=== PATIENT | female | born 1935 | race African-American/Black ===

== ENCOUNTER 2017-05-14 07:45 | Emergency (ER) | payer MEDICARE, OTHER ==
[~2017-05-14] VITALS: Ht 162.6 cm; Wt 40.8 kg
[~2017-05-14 07:45] MED LIST: CLOP75TA PO; FERR-26 PO; HYDR-2762 PO; LOSA50TA6 PO; SIMV40TA3 PO
--- NOTE | 2017-05-14 08:33 | PHYS DOC ---
Past Medical History Past Medical History: Asthma, Cancer, Hypertension Additional Past Medical Histor: HIGH CHOLESTEROL Past Surgical History: Other Additional Past Surgical Histo: RIGHT LEG BYPASS Alcohol Use: None Drug Use: None Adult General Chief Complaint Chief Complaint: BACK PAIN - NO INJURY HPI HPI Patient is a 82 year old F who presents with upper back pain and a cough. Patient states she's had a cough for the past couple days and woke up this morning with worsening shortness of breath. Patient states she came the emergency room because she started having back pain that started last night and got worse this morning. Patient denies any trauma. Patient states the back pain is remitted thoracic across the low back. Patient denies any fevers. Patient denies any chest pain. Patient is not currently short of breath in the emergency room. Patient has no other complaints. Review of Systems Review of Systems GEN: Denies fevers, chills, sweats HEENT: Denies blurred vision, sore throat CV: Denies chest pain RESP: cough GI: Denies n/v/d NEURO: Denies confusion, dizziness MSK: Back pain Current Medications Current Medications Current Medications Medications (Trade) Dose Ordered Sig/Marilu Start Time Stop Time Status Last Admin Dose Admin Fentanyl Citrate (Fentanyl 2ml Vial) 50 mcg 1X ONCE 05/14/17 10:30 05/14/17 10:31 DC 05/14/17 11:00 50 MCG Iohexol (Omnipaque 300 Mg/ml) 75 ml STK-MED ONCE 05/14/17 09:40 05/14/17 09:41 DC Allergies Allergies Allergies Coded Allergies Type Severity Reaction Last Updated Verified No Known Drug Allergies 10/25/13 No Physical Exam Physical Exam GEN.: No apparent distress. Alert and oriented. HEENT: Head is normocephalic, atraumatic NECK: Supple. LUNGS: Decreased breath sounds right lung base HEART: RRR, S1, S2 present. Peripheral pulses intact ABDOMEN: Soft, nontender. Positive bowel sounds. EXTREMITIES: Without any cyanosis. NEUROLOGIC: Normal speech, normal tone PSYCHIATRIC: Normal affect, normal mood. SKIN: No ulcerations BACK: No midline tenderness over the C/T/L-spine no tenderness palpation over the paraspinous muscles over the T and L-spine Current Patient Data Vital Signs Vital Signs Date Time Temp Pulse Resp B/P (MAP) Pulse Ox O2 Delivery O2 Flow Rate FiO2 05/14/17 08:19 97.8 81 18 136/76 (96) 96 Room Air 97.8 Lab Values Laboratory Tests Test 05/14/17 08:50 White Blood Count 5.5 x10^3/uL (4.0-11.0) Red Blood Count 4.07 x10^6/uL (3.50-5.40) Hemoglobin 11.5 g/dL (12.0-15.5) L Hematocrit 34.6 % (36.0-47.0) L Mean Corpuscular Volume 85 fL (79-100) Mean Corpuscular Hemoglobin 28 pg (25-35) Mean Corpuscular Hemoglobin Concent 33 g/dL (31-37) Red Cell Distribution Width 18.2 % (11.5-14.5) H Platelet Count 371 x10^3/uL (140-400) Neutrophils (%) (Auto) 78 % (31-73) H Lymphocytes (%) (Auto) 10 % (24-48) L Monocytes (%) (Auto) 9 % (0-9) Eosinophils (%) (Auto) 3 % (0-3) Basophils (%) (Auto) 1 % (0-3) Neutrophils # (Auto) 4.3 x10^3uL (1.8-7.7) Lymphocytes # (Auto) 0.6 x10^3/uL (1.0-4.8) L Monocytes # (Auto) 0.5 x10^3/uL (0.0-1.1) Eosinophils # (Auto) 0.1 x10^3/uL (0.0-0.7) Basophils # (Auto) 0.1 x10^3/uL (0.0-0.2) Sodium Level 129 mmol/L (136-145) L Potassium Level 3.6 mmol/L (3.5-5.1) Chloride Level 94 mmol/L (98-107) L Carbon Dioxide Level 24 mmol/L (21-32) Anion Gap 11 (6-14) Blood Urea Nitrogen 5 mg/dL (7-20) L Creatinine 0.7 mg/dL (0.6-1.0) Estimated GFR (Cockcroft-Gault) 97.4 BUN/Creatinine Ratio 7 (6-20) Glucose Level 113 mg/dL (70-99) H Calcium Level 9.1 mg/dL (8.5-10.1) Total Bilirubin 0.2 mg/dL (0.2-1.0) Aspartate Amino Transferase (AST) 24 U/L (15-37) Alanine Aminotransferase (ALT) 16 U/L (14-59) Alkaline Phosphatase 51 U/L (46-116) Troponin I Quantitative < 0.017 ng/mL (0.000-0.055) Total Protein 7.5 g/dL (6.4-8.2) Albumin 3.9 g/dL (3.4-5.0) Albumin/Globulin Ratio 1.1 (1.0-1.7) Laboratory Tests 05/14/17 08:50 Laboratory Tests 05/14/17 08:50 EKG EKG 0845: EKG shows normal sinus rhythm rate of 76 no STEMI[] Radiology/Procedures Radiology/Procedures CXR: NAD CT chest: IMPRESSION: No acute finding in the chest. Opacity in the left upper lobe the etiology of which is unclear. This may reflect a focus of scarring. Malignancy is not excluded. Follow-up imaging should be considered. Possible tiny nodule in the right lower lobe[] Course & Med Decision Making Course & Med Decision Making Pertinent Labs and Imaging studies reviewed. (See chart for details) ED course: Patient was seen and examined emergency room CBC, CMP, CT scan of the chest with contrast and x-ray and EKG were ordered 1100: Patient was reexamined still having back pain however it was not reproducible with palpation and she reported the back pain as mid to upper back and hurt worse when she coughed, made patient aware of CT findings and the questionable finding on the left lung and recommended follow-up with PCP to further evaluate for possible lung mass. 1132: On reexamination patient feels much better after receiving 50 g of fentanyl and she is ready to go home. MDM: After reviewing the chart, CC/HPI/PMH, physical exam, [lab results], [ radiological results], I do not believe the patient has a significant lung infection or traumatic spinal injury warranting further workup and/or admission at this time. I believe the patient's back pain is secondary to muscle strain from coughing. On reexamination the pain has gotten better the patient is ready go home. Patient is stable for discharge. Additional verbal discharge instructions were provided to the patient and that if symptoms get worse or any new symptoms arise that are worrisome to the patient she is to return to the emergency room immediately [] Demetriaon Disclaimer Dragon Disclaimer This electronic medical record was generated, in whole or in part, using a voice recognition dictation system. Departure Departure Impression: Primary Impression: Cough Additional Impression: Pain in thoracic spine Disposition: HOME, SELF-CARE Condition: IMPROVED Referrals: RONIT PARIKH MD (PCP) Patient Instructions: Back Pain, Adult, Cough, Adult Additional Instructions: Please follow up with your family doctor 1 to 2 days Scripts Ibuprofen (IBUPROFEN) 800 Mg Tablet 800 MG PO PRN Q8HRS Y for INFLAMMATION for 10 Days, #30 TAB Prov: YASEMIN MELGOZA DO 05/14/17 Problem Qualifiers YASEMIN MELGOZA DO May 14, 2017 08:33
--- NOTE | 2017-05-14 08:50 | EKG ---
[facility] [address] [place] [address] Test Date: 2017-05-14 Test Time: 08:42:04 Pat Name: ALEXANDRA HAYES Department: Room: Gender: F Toby Maker: : [id number] Requested By: YASEMIN MELGOZA Order Number: [id number] Reading MD: Karla Pascual Measurements Intervals [place] Rate: 76 P: 76 MT: 162 QRS: 64 QRSD: 70 T: 62 QT: 380 QTc: 432 Interpretive Statements SINUS RHYTHM LEFT ATRIAL ABNORMALITY Electronically Signed On 05-17-2017 9:34:50 CDT by Karla Pascual
[2017-05-14 09:12] LABS: BASO # 0.1 x10^3/uL (0.0-0.2); BASO % 1 % (0-3); EOS % 3 % (0-3); HEMATOCRIT 34.6 % (36.0-47.0); HEMOGLOBIN 11.5 g/dL (12.0-15.5); LYMPH # 0.6 x10^3/uL (1.0-4.8); LYMPH % 10 % (24-48); MEAN CORPUSCULAR HEMOGLOBIN 28 pg (25-35); MEAN CORPUSCULAR HGB CONC 33 g/dL (31-37); MEAN CORPUSCULAR VOLUME 85 fL (79-100); MONO % 9 % (0-9); NEUT % 78 % (31-73); PLATELET COUNT 371 x10^3/uL (140-400); RED BLOOD COUNT 4.07 x10^6/uL (3.50-5.40); RED CELL DISTRIBUTION WIDTH 18.2 % (11.5-14.5); WHITE BLOOD COUNT 5.5 x10^3/uL (4.0-11.0)
[2017-05-14 09:14] LABS: CALCIUM 9.1 mg/dL (8.5-10.1); CREATININE 0.7 mg/dL (0.6-1.0); GFR 97.4; POTASSIUM 3.6 mmol/L (3.5-5.1)
[2017-05-14 09:20] LABS: ALBUMIN 3.9 g/dL (3.4-5.0); ALBUMIN/GLOBULIN RATIO 1.1 (1.0-1.7); TOTAL BILIRUBIN 0.2 mg/dL (0.2-1.0); TOTAL PROTEIN 7.5 g/dL (6.4-8.2)
[2017-05-14] MEDS ORDERED: IOHEXOL 300 MG/ML 75 ML VIAL IV ONE (09:30)
[2017-05-14] MEDS ORDERED: IOHEXOL 300 MG/ML 75 ML VIAL ONE (09:40)
--- NOTE | 2017-05-14 09:47 | RAD ---
Indication difficulty breathing. A single view the chest was obtained and is compared to a study 07/09/2009. There are probable background changes of emphysema or fibrosis. An acute finding in the chest is not seen. Calcified right hilar lymph nodes are noted appearing similar. IMPRESSION: No acute finding seen in the chest
--- NOTE | 2017-05-14 09:59 | RAD ---
Indication upper back pain. Contrast imaging was performed through the chest. Images were obtained during the arterial phase. Images were reformatted in the coronal and sagittal planes. 75 cc of Omnipaque 300 was administered. Note is made of a previous examination 04/05/2010. Imaging through the upper abdomen is unremarkable. There is moderately extensive coronary artery calcification. Apart from calcification of the thoracic aorta the aorta appears unremarkable. There are calcified mediastinal and right hilar lymph nodes. An acute parenchymal infiltrate in either lung is not seen. There is no pleural fluid or pneumothorax. There is a slightly irregular nodular opacity in the left upper lobe, image 26 series 2, measuring approximately 7 mm in greatest dimension. It is new relative to the previous exam. While this may reflect scar malignancy is not excluded. There is a possible nodule or scar in the right lower lobe measuring approximately 5 mm, image 44. IMPRESSION: No acute finding in the chest. Opacity in the left upper lobe the etiology of which is unclear. This may reflect a focus of scarring. Malignancy is not excluded. Follow-up imaging should be considered. Possible tiny nodule in the right lower lobe Nodules detected incidentally at non-screening CT Nodule size (mm) less than or equal to 4 Low Risk patients- no follow-up needed High Risk patients- follow-up at 12 months and if no change, no further imaging needed. Nodule size > 4-6 mm Low risk patients- follow- up at 12 months and if no change, no further imaging needed High risk patients- initial follow-up CT at 6-12 months and then at 18-24 months if no change. Nodule Size > 6-8 mm Low risk patients- initial follow-up CT at 6-12 months and then at 18-24 months if no change. High risk patients- initial follow- up CT at 3-6 months and then at 9-12 months if no change, Nodule Size >8 mm Either low or high risk patients: Follow-up CT at around 3, 9 and 24 [address], PET, and/or biopsy Note: newly detected indeterminate nodule in person 35 years of age or older. Low risk patients- minimal or absent history of smoking and/or other known risk factors. High risk patients- history of smoking or of other known risk factors. PQRS Compliance Statement: One or more of the following individualized dose reduction techniques were utilized for this examination: 1. Automated exposure control 2. Adjustment of the mA and/or kV according to patient size 3. Use of iterative reconstruction technique
[2017-05-14] MEDS ORDERED: fentaNYL PF VIAL 100 MCG/2 ML VIAL IV ONE (10:30)
[2017-05-14] MEDS ORDERED: IBUP-1060 PO (11:39)
[2017-05-14 11:42] VITALS: BP 162/77
== END 2017-05-14 11:51 | disposition home or self-care (01) ==
LOC: ER 07:45
DX: R05 Cough (principal); M54.6 Pain in thoracic spine; J45.909 Unspecified asthma, uncomplicated; I10 Essential (primary) hypertension; E78.00 Pure hypercholesterolemia, unspecified
CPT/HCPCS: 36415; 71010; 71260; 80053; 84484; 85025; 93005; 96374; 99285; J3010; Q9967

== ENCOUNTER → 2017-11-28 | Outpatient (CLI) | payer MEDICARE | END | disposition home or self-care (01) | LOC: CT 13:11 | DX: J43.2 Centrilobular emphysema (principal); I25.10 Atherosclerotic heart disease of native coronary artery without angina pectoris; I70.0 Atherosclerosis of aorta; D71 Functional disorders of polymorphonuclear neutrophils | CPT/HCPCS: 71250 ==

== ENCOUNTER → 2018-12-11 | Outpatient (CLI) | payer MEDICARE ==
[~2018-12-11] MED LIST changes: -FERR-26 PO; +FERR325T14 PO; -HYDR-2762 PO; +HYDR-2765 PO; +IBUP-1060 PO; +LOSA-73 PO; -LOSA50TA6 PO
--- NOTE | 2018-12-11 16:32 | RAD ---
PQRS Compliance Statement: One or more of the following individualized dose reduction techniques were utilized for this examination: 1. Automated exposure control 2. Adjustment of the mA and/or kV according to patient size 3. Use of iterative reconstruction technique CT CHEST WO CONTRAST Clinical Indication: F/U LUNG NODULE Comparison: CT chest without contrast, November 28, 2017. TECHNIQUE: Helical CT imaging of the chest is performed without IV contrast. Findings: Atherosclerotic thoracic aorta. Question narrowing at the origin of the left subclavian artery. Stable large calcified right paratracheal and right hilar lymph nodes. Three-vessel coronary artery disease. Aortic annular calcification. The great vessels are normal caliber. Cardiac size normal, no pericardial effusion. Minimal linear retained secretions in the trachea. There is mild upper lobe centrilobular emphysema. Minimal linear scarring or discoid atelectasis in the right middle lobe. Irregular nodular opacities in the left upper lobe have increased in size largest solid component measures 0.7 x 0.9 cm, image 125 of series 3. Opacity partially outlines a bronchiole, image 128. There is focal peribronchial thickening is seen on image 131. Some of this change may be infectious/inflammatory. Underlying malignancy is not excluded. Tiny subpleural nodule in the superior segment of the left lower lobe is stable, image 203. Visualized upper abdomen is unremarkable. No loss of height in the thoracic spine. IMPRESSION: 1. Irregular nodular opacities in the left upper lobe have increased in size. Opacity partially outlines a bronchiole and there is focal peribronchial thickening. Some of the change may be infectious/inflammatory. Underlying malignancy is not excluded. Given the change, shorter-term CT follow-up is suggested. 2. Mild upper lobe centrilobular emphysema. Electronically signed by: Erick Cheung MD (12/11/2018 4:29 PM) [id number]
== END | disposition home or self-care (01) ==
LOC: CT 14:59
PROVIDERS: ATTEND Internal Medicine Pulmonary Disease
DX: J43.2 Centrilobular emphysema (principal); R91.1 Solitary pulmonary nodule; I70.0 Atherosclerosis of aorta; I77.1 Stricture of artery; I25.10 Atherosclerotic heart disease of native coronary artery without angina pectoris; I10 Essential (primary) hypertension; Z87.891 Personal history of nicotine dependence
CPT/HCPCS: 71250

== ENCOUNTER → 2019-06-08 | Outpatient (CLI) | payer MEDICARE ==
--- NOTE | 2019-06-08 15:20 | RAD ---
Examination: CT chest without contrast. HISTORY: History of lung nodule COMPARISON: 12/11/2018 TECHNIQUE: Axial CT images were performed without contrast. Coronal and sagittal reformats are performed. Exposure: One or more of the following individualized dose reduction techniques were utilized for this examination: 1. Automated exposure control 2. Adjustment of the mA and/or kV according to patient size 3. Use of iterative reconstruction technique FINDINGS: The central airways are patent. Mild cardiomegaly. Coronary artery calcifications/ The ascending aorta measures 3 cm in transverse dimension. Diffuse aortic atherosclerosis. Calcified lymph nodes identified in the mediastinum and the right hilum. Irregularity identified in the right upper lobe of the lung now measures 2.8 cm compared to prior exam measuring 9 mm. There is this small nodule identified in the right lower lobe of the lung measuring 7.5 mm similar to prior exam. No evidence of pleural effusion or pneumothorax Moderate lung emphysematous changes. The visualized noncontrasted liver, spleen, adrenals grossly appears unremarkable. Mild degenerative changes thoracic spine. IMPRESSION: 1. Interval increase in size of the irregular opacity left upper lobe lung suspicious for malignancy. Recommend CT guided biopsy and/or PET CT scan. Electronically signed by: Tomi Hinkle MD (06/08/2019 3:17 PM) [id number]
== END | disposition home or self-care (01) ==
LOC: CT 15:19
PROVIDERS: ATTEND Internal Medicine Pulmonary Disease
DX: J43.8 Other emphysema (principal); R91.1 Solitary pulmonary nodule; I70.0 Atherosclerosis of aorta
CPT/HCPCS: 71250

== ENCOUNTER → 2020-08-15 | Outpatient (CLI) | payer MEDICARE ==
[~2020-08-15] MED LIST changes: +SIMV40TA18 PO; -SIMV40TA3 PO
[2020-08-15 14:20] LABS: BASO # 0.1 x10^3/uL (0.0-0.2); BASO % 1 % (0-3); EOS # 0.6 x10^3/uL (0.0-0.7); EOS % 7 % (0-3); HEMATOCRIT 27.2 % (36.0-47.0); HEMOGLOBIN 9.1 g/dL (12.0-15.5); LYMPH # 0.8 x10^3/uL (1.0-4.8); LYMPH % 10 % (24-48); MEAN CORPUSCULAR HEMOGLOBIN 30 pg (25-35); MEAN CORPUSCULAR HGB CONC 33 g/dL (31-37); MEAN CORPUSCULAR VOLUME 89 fL (79-100); MONO # 0.7 x10^3/uL (0.0-1.1); MONO % 8 % (0-9); NEUT # 6.2 x10^3/uL (1.8-7.7); NEUT % 74 % (31-73); PLATELET COUNT 589 x10^3/uL (140-400); RED BLOOD COUNT 3.07 x10^6/uL (3.50-5.40); RED CELL DISTRIBUTION WIDTH 17.7 % (11.5-14.5); WHITE BLOOD COUNT 8.4 x10^3/uL (4.0-11.0)
== END ==
LOC: ONCLAB 13:46
PROVIDERS: ATTEND Internal Medicine Hematology & Oncology
DX: C50.412 Malignant neoplasm of upper-outer quadrant of left female breast (principal); D50.9 Iron deficiency anemia, unspecified
CPT/HCPCS: 36415; 82607; 82728; 82746; 83540; 83550; 85025

== ENCOUNTER → 2020-09-19 | Outpatient (CLI) | payer MEDICARE ==
--- NOTE | 2020-09-20 09:02 | RAD ---
ADDENDUM #[address] Muhammad by telephone at 10:37 AM on 09/20/2020. Electronically signed by: Danica Patino MD (09/20/2020 10:37 AM) [id number] ORIGINAL REPORT EXAM: CT Chest without IV contrast INDICATION: Reason: CHEST PAIN, LUNG MASS / Spl. Instructions: / History: TECHNIQUE: Multi-detector row CT images were acquired from the thoracic inlet through the upper abdo men without the use of IV contrast. Sagittal and coronal images were acquired from the transaxial jorge a. All CT scans performed at this facility utilize dose optimization techniques as appropriate to the exam, including the following: Automated exposure control and adjustment of the mA and/or KV accordi ng to patient size (this includes techniques or standardized protocols for targeted exams where dose is indication/reason for exam). COMPARISON: Noncontrast chest CT 06/08/2019 FINDINGS: The absence of IV contrast limits evaluation of soft tissue pathology. CARDIOVASCULAR: Dense atherosclerotic calcifications in the thoracic aorta and in the origin of the left subclavian artery. Ascending aorta is unchanged in caliber at 3.2 cm. The heart is upper normal size. Trace pericardial effusion. MEDIASTINUM & MARTA: Densely calcified mediastinal and right hilar lymph nodes redemonstrated. Trace p ericardial fluid. LUNGS: Further interval increase in spiculated left upper lobe lung nodule, now measuring 3.1 x 1.8 x 1.6 cm (images 24 of axial series 2 and image 17 of coronal series 5) compared with 2.9 x 1.3 x 1.3 cm prev iously (image 27 of series 2 and image 29 of series 5 on the prior study). There is now abutment agai nst the left upper lobe pulmonary artery. Previously reported 7.5 mm nodule in the right lower lobe is not as well seen on this examination but in the left lower lobe periphery (image 37 of series 3 this exam), a 4 mm nodule is unchanged. PLEURAL SPACE: There is a new small left pleural effusion. No pneumothorax. OSSEOUS & SOFT TISSUE: There is a new left chest wall mass centered on the left eighth rib near the diaphragm that measures 4.9 x 3.2 x 6.1 cm (coronal image 19 series 5, axial image 47 series 3). It is associated with permea tive osteolytic destruction of the left eighth rib and mild pleural thickening. Sagittal reformats sanchez ggest possible involvement of the superior margin of the adjacent left ninth rib as well (image 11 se shannon 6). There is a left level 1 axillary lymph node (image 38 of series 3) that appears slightly larger and a symmetric to the contralateral chest. This is at the approximate 3:00 position 5 cm from the nipple. ABDOMEN: The visualized portions of the upper abdomen are unremarkable. IMPRESSION: 1. Findings suspicious for progression in a primary lung malignancy in the left upper lobe with now e vidence of metastatic disease to the left chest wall and a small left pleural effusion. Findings telephoned to the ordering provider's office (Dr. Sergo Muhammad) and left with his diagnostic assistant via voicemail at 8:41 AM on 09/20/2020. Electronically signed by: Danica Patino MD (09/20/2020 9:00 AM) [id number]
== END ==
LOC: CT 11:36
PROVIDERS: ATTEND Family Medicine
DX: C78.02 Secondary malignant neoplasm of left lung (principal); I70.0 Atherosclerosis of aorta; I89.8 Other specified noninfective disorders of lymphatic vessels and lymph nodes; R91.8 Other nonspecific abnormal finding of lung field; J90 Pleural effusion, not elsewhere classified
CPT/HCPCS: 71250

== ENCOUNTER → 2020-09-29 | Outpatient (CLI) | payer MEDICARE ==
--- NOTE | 2020-10-02 13:03 | RAD ---
DATE: 09/29/2020 1:42 PM EXAM: DIGITAL SCREEN BILAT W/CAD HISTORY: Screening COMPARISON: None. This is a baseline. Bilateral CC and MLO views of the breasts were performed. Bilateral breast tomosynthesis was performed in CC and MLO projections. This study was interpreted with the benefit of Computerized Aided Detection (CAD). FINDINGS: Breast Density: SCATTERED The breast parenchyma shows scattered fibroglandular densities. Breast parenchyma level B No suspicious masses, microcalcifications or architectural distortion is present to suggest malignancy in either breast. The visualized axillae are unremarkable. IMPRESSION: No mammographic evidence of malignancy. BI-RADS CATEGORY: 1 NEGATIVE RECOMMENDED FOLLOW-UP: 12M 12 MONTH FOLLOW-UP Annual screening mammography is recommended, unless clinically indicated sooner based on symptoms or change in physical exam. PQRS compliance statement: Patient information was entered into a reminder system with a target due date for the next mammogram. Mammography is a sensitive method for finding small breast cancers, but it does not detect them all and is not a substitute for careful clinical examination. A negative mammogram does not negate a clinically suspicious finding and should not result in delay in biopsying a clinically suspicious abnormality. "Our facility is accredited by the [employer] Mammography Program."
== END ==
LOC: PETSC 13:23
PROVIDERS: ATTEND Radiology Radiation Oncology
DX: Z12.31 Encounter for screening mammogram for malignant neoplasm of breast (principal)
CPT/HCPCS: 77067

== ENCOUNTER 2020-10-04 09:50 | Outpatient (CLI) | payer MEDICARE ==
[2020-10-04] VITALS (10 sets, daily range): BP systolic 113–172; BP diastolic 54–89
[~2020-10-04] VITALS: Ht 162.6 cm; Wt 37.2 kg
[2020-10-04] MEDS ORDERED: fentaNYL PF VIAL 100 MCG/2 ML VIAL ONE (10:46)
[2020-10-04] MEDS ORDERED: MIDAZOLAM HCL/PF 2 MG/2 ML VIAL. ONE (10:46)
[2020-10-04 11:00] LABS: BASO # 0.1 x10^3/uL (0.0-0.2); BASO % 1 % (0-3); EOS # 0.7 x10^3/uL (0.0-0.7); EOS % 7 % (0-3); HEMATOCRIT 32.4 % (36.0-47.0); HEMOGLOBIN 10.6 g/dL (12.0-15.5); LYMPH # 0.3 x10^3/uL (1.0-4.8); LYMPH % 3 % (24-48); MEAN CORPUSCULAR HEMOGLOBIN 28 pg (25-35); MEAN CORPUSCULAR HGB CONC 33 g/dL (31-37); MEAN CORPUSCULAR VOLUME 86 fL (79-100); MONO # 0.5 x10^3/uL (0.0-1.1); MONO % 5 % (0-9); NEUT # 9.2 x10^3/uL (1.8-7.7); NEUT % 85 % (31-73); PLATELET COUNT 751 x10^3/uL (140-400); RED BLOOD COUNT 3.78 x10^6/uL (3.50-5.40); RED CELL DISTRIBUTION WIDTH 14.1 % (11.5-14.5); WHITE BLOOD COUNT 10.8 x10^3/uL (4.0-11.0)
[2020-10-04] MEDS ORDERED: fentaNYL PF VIAL 100 MCG/2 ML VIAL IV ONE (11:00)
[2020-10-04] MEDS ORDERED: LIDOCAINE WITH 8.4% SOD BICARB 3 ML DISP.SYRIN. IJ ONE (11:00)
[2020-10-04] MEDS ORDERED: MIDAZOLAM HCL/PF 2 MG/2 ML VIAL. IV ONE (11:00)
[2020-10-04] MEDS ORDERED: LIDOCAINE WITH 8.4% SOD BICARB 3 ML DISP.SYRIN. ONE (11:03)
[2020-10-04 11:10] LABS: PROTHROMBIN TIME PATIENT 12.9 SEC (11.7-14.0)
[2020-10-04] MEDS ORDERED: OLME40TA12 PO (11:14)
[2020-10-04] MEDS ORDERED: FLUT1DIS IH (11:14)
[2020-10-04] MEDS ORDERED: AMLO2.5T5 PO (11:14)
[2020-10-04] MEDS ORDERED: TRAM50TA PO (11:14)
[2020-10-04] MEDS ORDERED: IPRA3AMP29 NEB (11:15)
[2020-10-04 12:06] LABS: % BANDS 11 % (0-9); % BASOS 1 % (0-3); % EOS 4 % (0-5); % LYMPHS 7 % (24-48); % MONOS 4 % (0-10); % SEGS 73 % (35-66)
[2020-10-04 12:08] LABS: PLT ESTIMATE INCREASED (ADEQUATE)
[2020-10-04 12:10] LABS: TOXIC VACUOLATION SLIGHT
--- NOTE | 2020-10-04 13:10 | NUR ---
Patient taken to vehicle via wheelchair. Patient's daughter driving. No bleeding at site. VS stable. On RA. Instructions provided on sedation, incision care. Patient and daughter verbalized understanding. All belongings taken w/ patient at time of d/c. Patient will followup with ordering MD for results/treatment.
--- NOTE | 2020-10-06 10:06 | RAD ---
Procedure: CT-guided biopsy, left chest wall mass Clinical Indication: Left chest wall mass concerning for metastatic lung cancer Sedation: [id number] conscious sedation time 20 minutes. The patient was monitored by a qualified independent observer throughout the time of sedation. Please refer to the medical record for exact doses of medications utilized to achieve moderate sedation. Sterility: The procedure was performed in its entirety using appropriate elements of sterile technique. Consent: The procedure was explained in its entirety to the patient or the patients designated entry level account representative by a member of the treatment team, including a discussion of the risks, benefits and commonly accepted alternatives to the procedure, as well as the expected consequences of no therapy whatsoever. Discussion of the risks included, but was not limited to, those that are most frequent and those that are rare but possibly severe or life-threatening, as well as the possibility of unforeseen complications. A timeout procedure was performed. The patient was placed in the supine position. CT imaging was obtained demonstrating a mass infiltrating the left chest wall. Arise from an underlying rib the area was prepped and draped as described. 1% lidocaine was used for local anesthesia. A small dermatotomy was made. Under periodic CT surveillance, a 17-gauge needles advanced into the center of the lesion. Core biopsy samples were obtained placed in formalin. The needle was removed. Manual pressure was held. No immediate complications were identified. Sterile dressings were applied. IMPRESSION: CT-guided biopsy, left chest wall mass. PQRS Compliance Statement: One or more of the following individualized dose reduction techniques were utilized for this examination: 1. Automated exposure control 2. Adjustment of the mA and/or kV according to patient size 3. Use of iterative reconstruction technique
== END 2020-10-04 13:13 | disposition home or self-care (01) ==
LOC: INTRAD 09:50
PROVIDERS: ATTEND Radiology Radiation Oncology
DX: R22.2 Localized swelling, mass and lump, trunk (principal); C34.32 Malignant neoplasm of lower lobe, left bronchus or lung; E78.00 Pure hypercholesterolemia, unspecified; I10 Essential (primary) hypertension; J44.9 Chronic obstructive pulmonary disease, unspecified; Z98.51 Tubal ligation status; Z79.899 Other long term (current) drug therapy; Z98.890 Other specified postprocedural states; Z20.828 Contact with and (suspected) exposure to other viral communicable diseases
CPT/HCPCS: 20206; 36415; 77012; 85007; 85025; 85610; 87426; 88305; 88341; 88342; 99152; C9803; J2250; J3010; J3490; U0003

== ENCOUNTER → 2020-10-06 | Outpatient (CLI) | payer MEDICARE ==
[2020-10-04 13:00] VITALS: BP 113/58
[~2020-10-06] MED LIST changes: +AMLO2.5T5 PO; +FLUT1DIS IH; +IPRA3AMP29 NEB; +OLME40TA12 PO; +TRAM50TA PO
--- NOTE | 2020-10-09 15:51 | RAD ---
EXAM: NM PET/CT SKULL BASE TO MID THIGH EXAM DATE: 10/06/2020 INDICATION: Pulmonary nodule. RADIOPHARMACEUTICAL: 13.8 mCi of F-18 Fluorodeoxyglucose (FDG) I.V. via the left antecubital fossa. TECHNIQUE: Patient weight: 82 pounds. Following at least four-hour fasting, the patient's blood gluco se was 120 mg/dl. Approximately 1 hour and 30 minutes after administration of FDG, overlapping emiss ion scanning was performed from the orbital meatal line through the pelvis. A low-dose CT was perfor med for attenuation correction purposes and anatomic localization. Fused images of PET and CT were re viewed. Any standardized uptake values (SUV) reported are maximum values within a volume region of i nterest, expressed in gm/ml. COMPARISON: CT-guided left chest mass biopsy of 10/04/2020, noncontrast CT chest of 09/19/2020. FINDINGS: PET: In the head and neck, no abnormal FDG uptake is identified. In the chest, the spiculated left upper lobe lung mass with pleural retraction demonstrates abnormal FDG uptake to max SUV of 7.07. There is abnormal FDG uptake in the adjacent left hilum to a max SUV o f 9.04. There is also abnormal FDG uptake in the mediastinal lymph nodes including an AP window showi ng uptake to max SUV of 9.31, and enlarged left and right internal mammary nodes respectively showing a FDG uptake to max SUV of 4.23 and 5.06. By contrast, background mediastinal activity shows a max S UV of 2.17. In addition, a left chest wall mass eroding the eighth rib near the mid axillary line (and which was recently targeted for biopsy) shows abnormal FDG uptake to max SUV of 9.53 superiorly. The inferior a spect of the mass showing a max SUV of 7.85. There is a central photopenic defect in this mass that c ould reflect tissue necrosis. Focal FDG uptake near the left 8th rib costotransverse junction is also noted to a max SUV of 4.63. No abnormal FDG uptake in the abdomen or pelvis. CT: Head and neck shows a 1.7 cm isodense mass in the subcutaneous soft tissues of the right cheek, showi ng no abnormal FDG uptake, suggestive of a sebaceous cyst. There are dense arterial calcifications in the bilateral cervical carotid arteries. Chest shows densely calcified mediastinal and right hilar lymph nodes in addition to the hypermetabol ic nodes noted in the PET section of this study. For reference, the hypermetabolic left internal mamm renato lymph node measures 1.8 x 0.9 cm (image 114 of series 3) while the hypermetabolic right internal mammary lymph node measures 1.5 x 0.9 cm (image 124 of series 3). Heart is upper normal in size and t here is a trace, 6 mm maximum depth pericardial effusion. This is not significantly changed. Abdomen and pelvis show moderate stool throughout the large bowel, dense arterial calcifications incl uding in the abdominal aorta, and a stent in the right femoral artery. The bones show no acute or aggressive appearing lesions besides erosions at the left eighth rib as de scribed above. IMPRESSION: Findings consistent with a left upper lobe primary lung malignancy with extensive mediastinal and ips ilateral hilar adenopathy as described, associated with a small left pleural effusion and a hypermeta bolic left chest wall mass suspicious for a metastatic deposit. No findings of a synchronous malignan cy or more distant metastatic disease. Electronically signed by: Danica Patino MD (10/09/2020 3:49 PM) [id number]
== END ==
LOC: PETSC 09:21
PROVIDERS: ATTEND Radiology Radiation Oncology
DX: R91.8 Other nonspecific abnormal finding of lung field (principal); I31.3 Pericardial effusion (noninflammatory); R09.1 Pleurisy
CPT/HCPCS: 78815; A9552

== ENCOUNTER → 2020-10-12 | Outpatient (CLI) | payer MEDICARE ==
[2020-10-04 13:00] VITALS: BP 113/58
[~2020-10-12] MED LIST changes: +FERR-36 PO; +GADOTERATE 5 MMOL/10ML VIAL. IVP ONE; +HYDR-2759 PO; +PANT40TA77 PO
[2020-10-12 11:30] LABS: CREATININE 0.8 mg/dL (0.6-1.0); GFR 82.9
--- NOTE | 2020-10-12 13:53 | RAD ---
MRI BRAIN WO+W Date: 10/12/2020 11:10 AM Indication: CANCER STAGING Hx LUNG ADENOCARCINOMA Comparison: None. Technique: Multiplanar multisequence MRI of the brain was performed with and without intravenous cont rast using the standard protocol. 7 cc Clariscan contrast was administered intravenously during the e xam. Findings: No acute infarct. No acute hemorrhage. Focus of gradient susceptibility artifact in the left parietal region, likely chronic microhemorrhage or cavernoma. The ventricles are normal in size and configura tion without hydrocephalus. Mild scattered FLAIR hyperintensities in the subcortical and periventricu lar deep white matter, a nonspecific finding, most commonly seen with chronic small vessel ischemic d isease. Moderate generalized cerebral volume loss. No abnormal enhancement. The scalp and calvarium are normal. The pituitary and sella are normal. No Chiari malformation. Incom pletely characterized degenerative spondylosis of the visualized upper cervical spine. The visualized orbits and globes are normal. The visualized paranasal sinuses are clear. Right mastoi d fluid. Right facial subcutaneous nodule, likely sebaceous cyst. Normal flow voids within the vertebral, basilar, and internal carotid arteries indicating patency. IMPRESSION: 1. No evidence of intracranial metastatic disease. 2. Mild chronic small vessel ischemic disease and moderate generalized cerebral volume loss. Electronically signed by: Michael Zayas MD (10/12/2020 1:51 PM) [id number]
== END ==
LOC: MRI 13:29
PROVIDERS: ATTEND Radiology Radiation Oncology
DX: C34.82 Malignant neoplasm of overlapping sites of left bronchus and lung (principal)
CPT/HCPCS: 36415; 70553; 82565; 84520; A9575

== ENCOUNTER 2020-11-25 14:38 | Emergency (ER) | payer MEDICARE ==
[~2020-11-25] VITALS: Ht 160 cm; Wt 34.0 kg
[~2020-11-25 14:38] MED LIST changes: -FERR-36 PO; -GADOTERATE 5 MMOL/10ML VIAL. IVP ONE; -HYDR-2759 PO; -PANT40TA77 PO
[2020-11-25 16:05] LABS: BASO % 1 % (0-3); EOS # 0.2 x10^3/uL (0.0-0.7); EOS % 4 % (0-3); HEMATOCRIT 31.4 % (36.0-47.0); HEMOGLOBIN 10.2 g/dL (12.0-15.5); LYMPH # 0.1 x10^3/uL (1.0-4.8); LYMPH % 2 % (24-48); MEAN CORPUSCULAR HEMOGLOBIN 26 pg (25-35); MEAN CORPUSCULAR HGB CONC 32 g/dL (31-37); MEAN CORPUSCULAR VOLUME 80 fL (79-100); MONO # 0.5 x10^3/uL (0.0-1.1); MONO % 10 % (0-9); NEUT # 3.8 x10^3/uL (1.8-7.7); NEUT % 83 % (31-73); PLATELET COUNT 414 x10^3/uL (140-400); RED CELL DISTRIBUTION WIDTH 18.6 % (11.5-14.5); WHITE BLOOD COUNT 4.6 x10^3/uL (4.0-11.0)
[2020-11-25 16:21] LABS: CREATININE 0.7 mg/dL (0.6-1.0); GFR 96.7; POTASSIUM 4.2 mmol/L (3.5-5.1)
[2020-11-25 16:24] LABS: % BANDS 5 % (0-9); % EOS 4 % (0-5); % LYMPHS 2 % (24-48); % MONOS 9 % (0-10); % SEGS 80 % (35-66); PLT ESTIMATE INCREASED (ADEQUATE)
[2020-11-25 16:25] LABS: ANISOCYTOSIS SLIGHT; POIKILOCYTOSIS SLIGHT; SCHISTOCYTES FEW
[2020-11-25 16:28] LABS: ALBUMIN 3.3 g/dL (3.4-5.0); DIRECT BILIRUBIN 0.1 mg/dL (0.0-0.2); TOTAL BILIRUBIN 0.3 mg/dL (0.2-1.0); TOTAL PROTEIN 7.3 g/dL (6.4-8.2)
[2020-11-25 16:39] LABS: CREATINE KINASE 72 U/L (26-192)
[2020-11-25] MEDS ORDERED: IV NORMAL SALINE 1000ML BAG 1,000 ML IV ONE (16:45)
--- NOTE | 2020-11-25 16:52 | PHYS DOC ---
Past Medical History Past Medical History: Asthma, COPD, High Cholesterol, Hypertension Additional Past Medical Histor: HIGH CHOLESTEROL (KATHERYN DOUGLASS MD) Past Surgical History: Other Additional Past Surgical Histo: Venous surgery on R leg, RADIATION (KATHERYN DOUGLASS MD) Smoking Status: Former Smoker Alcohol Use: None Drug Use: None (KATHERYN DOUGLASS MD) Adult General Chief Complaint Chief Complaint: WEAKNESS/GENERALIZED HPI HPI Patient is a 85 year old female with a complicated past medical history which is include diagnosis of recent cancer currently undergoing chemo and radiation now presenting emergency department for thrive and weakness. Patient and family note that she has been having increasing difficulty eating with decreased appetite over the last 24 hours notes that she has been increasingly weak with generalized body and muscle weakness. Daughter also notes that she feels that for the last 24 hours the patient has been slightly more delirious and "out of it". No fevers, chills, nausea, vomiting, abdominal pain, chest pain or shortness of breath. No recent travel or sick contacts. (KATHERYN DOUGLASS MD) Review of Systems Review of Systems Constitutional: Denies fever or chills [] Eyes: Denies change in visual acuity, redness, or eye pain [] HENT: Denies nasal congestion or sore throat [] Respiratory: Denies cough or shortness of breath [] Cardiovascular: No additional information not addressed in HPI [] GI: Denies abdominal pain, nausea, vomiting, bloody stools or diarrhea [] : Denies dysuria or hematuria [] Musculoskeletal: Denies back pain or joint pain [] Integument: Denies rash or skin lesions [] Neurologic: Denies headache, focal weakness or sensory changes [] Endocrine: Denies polyuria or polydipsia [] All other systems were reviewed and found to be within normal limits, except as documented in this note. (KATHERYN DOUGLASS MD) Current Medications Current Medications Current Medications Medications (Trade) Dose Ordered Sig/Marilu Start Time Stop Time Status Last Admin Dose Admin Sodium Chloride 1,000 ml @ 1,000 mls/hr 1X ONCE 11/25/20 16:45 11/25/20 17:44 DC 11/25/20 16:43 1,000 MLS/HR (ANA DUNCAN DO) Allergies Allergies Allergies Coded Allergies Type Severity Reaction Last Updated Verified No Known Drug Allergies 2/17/14 No (ANA DUNCAN DO) Physical Exam Physical Exam Constitutional: Well developed, well nourished, no acute distress, non-toxic a ppearance. [] HENT: Normocephalic, atraumatic, bilateral external ears normal, oropharynx moist, no oral exudates, nose normal. [] Eyes: PERRLA, EOMI, conjunctiva normal, no discharge. [] Neck: Normal range of motion, no tenderness, supple, no stridor. [] Cardiovascular:Heart rate regular rhythm, no murmur [] Lungs & Thorax: Bilateral breath sounds clear to auscultation [] Abdomen: Bowel sounds normal, soft, no tenderness, no masses, no pulsatile masses. [] Skin: Warm, dry, no erythema, no rash. [] Back: No tenderness, no CVA tenderness. [] Extremities: No tenderness, no cyanosis, no clubbing, ROM intact, no edema. [] Neurologic: Alert and oriented X 3, normal motor function, normal sensory function, no focal deficits noted. [] Psychologic: Affect normal, judgement normal, mood normal. [] (KATHERYN DOUGLASS MD) Current Patient Data Vital Signs Vital Signs Date Time Temp Pulse Resp B/P (MAP) Pulse Ox O2 Delivery O2 Flow Rate FiO2 11/25/20 17:05 88 18 131/63 (85) 95 Room Air 11/25/20 14:40 97.3 97.3 ([facility]) Lab Values Laboratory Tests Test 11/25/20 15:40 11/25/20 18:30 White Blood Count 4.6 x10^3/uL (4.0-11.0) Red Blood Count 3.90 x10^6/uL (3.50-5.40) Hemoglobin 10.2 g/dL (12.0-15.5) L Hematocrit 31.4 % (36.0-47.0) L Mean Corpuscular Volume 80 fL (79-100) Mean Corpuscular Hemoglobin 26 pg (25-35) Mean Corpuscular Hemoglobin Concent 32 g/dL (31-37) Red Cell Distribution Width 18.6 % (11.5-14.5) H Platelet Count 414 x10^3/uL (140-400) H Neutrophils (%) (Auto) 83 % (31-73) H Lymphocytes (%) (Auto) 2 % (24-48) L Monocytes (%) (Auto) 10 % (0-9) H Eosinophils (%) (Auto) 4 % (0-3) H Basophils (%) (Auto) 1 % (0-3) Neutrophils # (Auto) 3.8 x10^3/uL (1.8-7.7) Lymphocytes # (Auto) 0.1 x10^3/uL (1.0-4.8) L Monocytes # (Auto) 0.5 x10^3/uL (0.0-1.1) Eosinophils # (Auto) 0.2 x10^3/uL (0.0-0.7) Basophils # (Auto) 0.0 x10^3/uL (0.0-0.2) Segmented Neutrophils % 80 % (35-66) H Band Neutrophils % 5 % (0-9) Lymphocytes % 2 % (24-48) L Monocytes % 9 % (0-10) Eosinophils % 4 % (0-5) Platelet Estimate Increased (ADEQUATE) Poikilocytosis Slight Anisocytosis Slight Schistocytes Few Sodium Level 131 mmol/L (136-145) L Potassium Level 4.2 mmol/L (3.5-5.1) Chloride Level 96 mmol/L (98-107) L Carbon Dioxide Level 26 mmol/L (21-32) Anion Gap 9 (6-14) Blood Urea Nitrogen 18 mg/dL (7-20) Creatinine 0.7 mg/dL (0.6-1.0) Estimated GFR (Cockcroft-Gault) 96.7 Glucose Level 95 mg/dL (70-99) Calcium Level 9.0 mg/dL (8.5-10.1) Total Bilirubin 0.3 mg/dL (0.2-1.0) Direct Bilirubin 0.1 mg/dL (0.0-0.2) Aspartate Amino Transferase (AST) 18 U/L (15-37) Alanine Aminotransferase (ALT) 21 U/L (14-59) Alkaline Phosphatase 60 U/L (46-116) Creatine Kinase 72 U/L (26-192) Creatine Kinase MB (Mass) 1.6 ng/mL (0.0-3.6) Creatine Kinase MB Relative Index % (0-4) Total Protein 7.3 g/dL (6.4-8.2) Albumin 3.3 g/dL (3.4-5.0) L Lipase 94 U/L (73-393) Urine Collection Type Unknown Urine Color Yellow Urine Clarity Clear Urine pH 6.0 (<5.0-8.0) Urine Specific [place] 1.015 (1.000-1.030) Urine Protein Negative mg/dL (NEG-TRACE) Urine Glucose (UA) Negative mg/dL (NEG) Urine Ketones (Stick) Negative mg/dL (NEG) Urine Blood Negative (NEG) Urine Nitrite Negative (NEG) Urine Bilirubin Negative (NEG) Urine Urobilinogen Dipstick 0.2 mg/dL (0.2 mg/dL) Urine Leukocyte Esterase Negative (NEG) Urine RBC Occ /HPF (0-2) Urine WBC Occ /HPF (0-4) Urine Squamous Epithelial Cells Mod /LPF Urine Bacteria 0 /HPF (0-FEW) Urine Mucus Slight /LPF Laboratory Tests 11/25/20 15:40 Laboratory Tests 11/25/20 15:40 [facility] E[facility] EKG [] (KATHERYN DOUGLASS MD) Radiology/Procedures Radiology/Procedures [] (KATHERYN DOUGLASS MD) Course & Med Decision Making Course & Med Decision Making Pertinent Labs and Imaging studies reviewed. (See chart for details) 85F with worsening dizziness and weakness most consistent with acute failure to thrive but also probably secondary to chemotherapy. Primary complaint appears to be decreased appetite but there is some concern for weakness. Therefore we will obtain full continued on labs and make sure there is no significant underlying etiology or changes given the patient's age is also significant consideration for possible urinary tract infection causing the patient's symptoms. Obtain a urinalysis and reevaluate (KATHERYN DOUGLASS MD) Course & Med Decision Making 85-year-old female recently diagnosed with stage IV lung cancer, receiving radiation with Dr. Merritt. Has appt this week with Dr. Durbin to discuss test results/tx/palliative tx options this week. Has not seen primary care physician Dr. Robb since initial diagnosis. Reports difficulties eating has no appetite-is trying to drink four ensures a day. Labs with chronic stable normocytic anemia, mild hyponatremia, no ketonuria on labs, no UTI. Patient came to the ED with her daughter whom she has lived with for the past couple weeks to "get checked out, make sure everything is okay." Informed lab results and urinalysis are not showing any acute abnormality. Patient with no ataxia or neurologic deficits. Suspect failure to thrive and normal sxs related to terminal cancer and radiation tx. Will discharge home with strict ED return precautions were given for syncope, head injury, chest pain, difficulties breathing or dehydration. Encouraged urgent outpatient follow-up with PMD to discuss titration services, consider palliative versus hospice care. Life- threatening processes were considered but are low suspicion at this time, given history, physical exam and ED workup. Pt was educated on all prescription medications and adverse effects. All patient's questions were answered and pt was stable at time of discharge. Life/limb-threatening differential includes but is not limited to, cerebrovascular accident, cerebellar stroke, acute coronary syndrome, carbon monoxide poisoning or other toxidrome, syncope differential including cardiac arrhythmia/PE/aortic aneurysm or dissection/ACS, Guillan [place] syndrome, thyroid disease, infection, central and peripheral vertigo, intracranial hemorrhage, vertebrobasilar insufficiency, heat stroke, electrolyte disorder, rheumatologic or autoimmune disorder I spoken with the patient and her caregivers. I explained the patient's condition, diagnoses and treatment plan based on the information available to me at this time. I have answered the patient and her caregiver's questions and addressed any concerns. The patient and her caregivers have a good understanding of patient's diagnosis, condition and treatment plan as can be expected at this point. Vital signs have been stable. Patient's condition is stable and appropriate for discharge from the emergency department. Patient will pursue further outpatient evaluation with primary care physician or other designated or consulting physician as outlined in the discharge instr uctions. The patient and/or caregivers are agreeable to this plan of care and follow-up instructions have been explained in detail. The patient and/or caregivers have received these instructions in written form and have expressed an understanding of the discharge instructions. The patient and/or caregivers are aware that any significant change of condition or worsening of symptoms should prompt immediate return to this or the closest emergency department or call to 911. (ANA REVELES DO) Dragon Disclaimer Dragon Disclaimer This electronic medical record was generated, in whole or in part, using a voice recognition dictation system. (KATHERYN DOUGLASS MD) Departure Departure Impression: Primary Impression: Failure to thrive Additional Impressions: Normocytic anemia Hyponatremia Disposition: DC HOME SELF CARE/HOMELESS Condition: STABLE Referrals: CHAYO IVEY MD (PCP) within 1 week for re-evaluation and discuss school psychometrist services Patient Instructions: Cancer, Radiation Treatment Additional Instructions: EMERGENCY DEPARTMENT GENERAL DISCHARGE INSTRUCTIONS Thank you for coming to [facility] Emergency Department (ED) today and trusting us with you care. We trust that you had a positive experience in our Emergency Department. If you wish to speak to the department management, you may call the Director at [phone]. YOUR FOLLOW UP INSTRUCTIONS ARE FOLLOWS: 1. Do you have a private Doctor? If you do not have a private doctor, please ask for a resource list of physicians or clinics that may be able to assist you with follow up care. 2. The Emergency Physicain has interpreted your x-rays. The X-Ray specialist will also review them. If there is a change in the findings, you will be notified in 48 hours when at all possible. 3. A lab test or culture has been done, your results will be reviewed and you will be notified if you need a change in treatment. ADDITIONAL INSTRUCTIONS AND INFORMATION: 1. Your care today has been supervised by a physician who is specially trained in emergency care. Many problems require more than one evaluation for a complete diagnosis and treatment. We recommend that you schedule your follow up appointment as recommended to ensure complete treatment of you illness or injury. If you are unable to obtain follow up care and continue to have a problem, or if your condition worsens, we recommend that you return to the ED. 2. We are not able to safely determine your condition over the phone nor are we able to give sound medical advice over the phone. For these safety reasons, if you call for medical advice we will ask you to come to the ED for further evaluation. 3. If you have any questions regarding these discharge instructions please call the ED at [phone]. SAFETY INFORMATION: In the interest of safety, wellness, and injury prevention; we encourage you to wear your sealbelt, if you smoke; quite smoking, and we encourage family to use a protective helmet for bicycling and other sporting events that present an increased risk for head injury. IF YOUR SYMPTOMS WORSEN OR NEW SYMPTOMS DEVELOP, OR YOU HAVE CONCERNS ABOUT YOUR CONDITION; OR IF YOUR CONDITION WORSENS WHILE YOU ARE WAITING FOR YOUR FOLLOW UP APPOINTMENT; EITHER CONTACT YOUR PRIMARY CARE DOCTOR, THE PHYSICIAN WHOSE NAME AND NUMBER YOU WERE GIVEN, OR RETURN TO THE ED IMMEDIATELY. Problem Qualifiers KATHERYN DOUGLASS MD Nov 25, 2020 16:51 ANA DUNCAN DO Nov 25, 2020 19:24
--- NOTE | 2020-11-25 18:15 | EKG ---
[facility] [address] [place] [address] Test Date: 2020-11-25 Test Time: 15:55:06 Pat Name: ALEXANDRA HAYES Department: Room: Gender: F Roll Coverer: : 1935 Requested By: KATHERYN DOUGLASS Order Number: [id number] Reading MD: Measurements Intervals [place] Rate: 82 P: 90 NV: 148 QRS: 51 QRSD: 76 T: 58 QT: 350 QTc: 412 Interpretive Statements SINUS RHYTHM ATRIAL PREMATURE COMPLEX(ES) OTHERWISE NORMAL ECG RI6.02 No previous ECG available for comparison
[2020-11-25 18:36] LABS: BILIRUBIN,URINE NEGATIVE (NEG); CLARITY,URINE CLEAR; COLOR,URINE YELLOW; NITRITE,URINE NEGATIVE (NEG); PROTEIN,URINE NEGATIVE (NEG-TRACE); UROBILINOGEN,URINE 0.2 mg/dL (0.2 mg/dL)
[2020-11-25 18:45] LABS: BACTERIA,URINE 0 /HPF (0-FEW); RBC,URINE OCC /HPF (0-2); WBC,URINE OCC /HPF (0-4)
[2020-11-25 19:30] VITALS: BP 140/70
== END 2020-11-25 19:36 | disposition home or self-care (01) ==
LOC: ER 14:38
DX: R62.7 Adult failure to thrive (principal); Z68.1 Body mass index [BMI] 19.9 or less, adult; D64.9 Anemia, unspecified; E87.1 Hypo-osmolality and hyponatremia; J44.9 Chronic obstructive pulmonary disease, unspecified; E78.00 Pure hypercholesterolemia, unspecified; I10 Essential (primary) hypertension; Z87.891 Personal history of nicotine dependence
CPT/HCPCS: 36415; 80048; 80076; 81001; 82550; 82553; 83690; 85007; 85025; 93005; 96360; 96361; 99285; J7030

== ENCOUNTER → 2020-11-29 | Outpatient (CLI) | payer MEDICARE ==
[2020-11-25 19:30] VITALS: BP 140/70
[2020-11-29 12:54] LABS: BASO % 1 % (0-3); EOS # 0.2 x10^3/uL (0.0-0.7); EOS % 4 % (0-3); HEMATOCRIT 33.6 % (36.0-47.0); LYMPH # 0.1 x10^3/uL (1.0-4.8); LYMPH % 3 % (24-48); MEAN CORPUSCULAR HEMOGLOBIN 27 pg (25-35); MEAN CORPUSCULAR HGB CONC 33 g/dL (31-37); MEAN CORPUSCULAR VOLUME 81 fL (79-100); MONO # 0.6 x10^3/uL (0.0-1.1); MONO % 11 % (0-9); NEUT # 4.4 x10^3/uL (1.8-7.7); NEUT % 83 % (31-73); PLATELET COUNT 451 x10^3/uL (140-400); RED BLOOD COUNT 4.14 x10^6/uL (3.50-5.40); RED CELL DISTRIBUTION WIDTH 19.4 % (11.5-14.5); WHITE BLOOD COUNT 5.3 x10^3/uL (4.0-11.0)
[2020-11-29 13:08] LABS: CALCIUM 9.4 mg/dL (8.5-10.1); CREATININE 0.7 mg/dL (0.6-1.0); GFR 96.7; POTASSIUM 4.4 mmol/L (3.5-5.1)
[2020-11-29 13:26] LABS: ALBUMIN 3.5 g/dL (3.4-5.0); ALBUMIN/GLOBULIN RATIO 0.8 (1.0-1.7); TOTAL BILIRUBIN 0.2 mg/dL (0.2-1.0); TOTAL PROTEIN 7.7 g/dL (6.4-8.2)
== END ==
LOC: ONCLAB 12:31
PROVIDERS: ATTEND Internal Medicine Hematology & Oncology
DX: C34.82 Malignant neoplasm of overlapping sites of left bronchus and lung (principal); D50.9 Iron deficiency anemia, unspecified
CPT/HCPCS: 36415; 80053; 82728; 83540; 83550; 85025

== ENCOUNTER → 2020-12-18 | Outpatient (CLI) | payer MEDICARE ==
[2020-11-25 19:30] VITALS: BP 140/70
[2020-12-18 12:43] LABS: BASO # 0.1 x10^3/uL (0.0-0.2); BASO % 1 % (0-3); EOS # 0.1 x10^3/uL (0.0-0.7); EOS % 3 % (0-3); HEMATOCRIT 31.5 % (36.0-47.0); HEMOGLOBIN 10.4 g/dL (12.0-15.5); LYMPH # 0.2 x10^3/uL (1.0-4.8); LYMPH % 4 % (24-48); MEAN CORPUSCULAR HEMOGLOBIN 28 pg (25-35); MEAN CORPUSCULAR HGB CONC 33 g/dL (31-37); MEAN CORPUSCULAR VOLUME 84 fL (79-100); MONO # 0.4 x10^3/uL (0.0-1.1); MONO % 11 % (0-9); NEUT # 3.5 x10^3/uL (1.8-7.7); NEUT % 81 % (31-73); PLATELET COUNT 495 x10^3/uL (140-400); RED BLOOD COUNT 3.76 x10^6/uL (3.50-5.40); RED CELL DISTRIBUTION WIDTH 22.8 % (11.5-14.5); WHITE BLOOD COUNT 4.3 x10^3/uL (4.0-11.0)
[2020-12-18 12:47] LABS: CALCIUM 9.5 mg/dL (8.5-10.1); CREATININE 0.9 mg/dL (0.6-1.0); GFR 72.4; POTASSIUM 4.4 mmol/L (3.5-5.1)
[2020-12-18 12:52] LABS: ALBUMIN 3.8 g/dL (3.4-5.0); ALBUMIN/GLOBULIN RATIO 0.9 (1.0-1.7); TOTAL BILIRUBIN 0.2 mg/dL (0.2-1.0)
[2020-12-18 15:47] LABS: % BANDS 5 % (0-9); % EOS 3 % (0-5); % LYMPHS 5 % (24-48); % MONOS 9 % (0-10); % SEGS 78 % (35-66)
[2020-12-18 15:48] LABS: ANISOCYTOSIS MOD; OVALOCYTES FEW; PLT ESTIMATE INCREASED (ADEQUATE)
[2020-12-18 15:49] LABS: HYPOCHROMIA SLIGHT; SCHISTOCYTES OCC
== END ==
LOC: ONCLAB 12:21
PROVIDERS: ATTEND Internal Medicine Hematology & Oncology
DX: D50.9 Iron deficiency anemia, unspecified (principal)
CPT/HCPCS: 36415; 80053; 85007; 85025

== ENCOUNTER → 2020-12-28 | Outpatient (CLI) | payer MEDICARE ==
[~2020-12-28] MED LIST changes: +FERR-36 PO; +HYDR-2759 PO; +PANT40TA77 PO
== END ==
LOC: LAB 13:57
PROVIDERS: ATTEND Surgery
DX: Z01.812 Encounter for preprocedural laboratory examination (principal); Z20.822 Contact with and (suspected) exposure to COVID-19
CPT/HCPCS: U0003; U0005

== ENCOUNTER 2021-01-01 10:19 | Day surgery (SDC) | payer MEDICARE ==
[~2021-01-01] VITALS: Ht 162.6 cm; Wt 36.5 kg
[~2021-01-01 10:19] MED LIST changes: +HEPARIN SODIUM 5,000 UNIT in IV NORMAL SALINE 500ML BAG 500 ML IRR ONE; +HYDROmorphone 2 MG/ML VIAL IVP PRN; +IV RINGERS,LACTATED 1000ML 1,000 ML IV SCH; +MORPHINE SULFATE 2 MG/ML VIAL. IVP PRN; +PROCHLORPERAZINE 10 MG/2 ML VIAL. IVP PRN; +ceFAZolin SODIUM IV Push 1 GM VIAL. IVP PRN; +fentaNYL PF VIAL 100 MCG/2 ML VIAL IVP PRN
[2021-01-01] MEDS ORDERED: SEVOFLURANE 61 TO 120 MINUTES. IH ONE (12:17)
[2021-01-01] MEDS ORDERED: fentaNYL PF VIAL 100 MCG/2 ML VIAL ONE (12:17)
[2021-01-01] MEDS ORDERED: LIDOCAINE 2% PF 5 ML VIAL. ONE (12:17)
[2021-01-01] MEDS ORDERED: PROPOFOL 10 MG/ML (20ML) VIAL. IV ONE (12:17)
[2021-01-01] MEDS ORDERED: DEXAMETHASONE SOD PHOS 4 MG/ML VIAL ONE (12:18)
[2021-01-01] MEDS ORDERED: ONDANSETRON PF 4 MG/2 ML VIAL. ONE (12:18)
[2021-01-01] MEDS ORDERED: BUPIVACAINE-EPI 0.5%-1:200000 MPF 30 ML VIAL. ONE (13:10)
[2021-01-01] MEDS ORDERED: PHENYLEPHRINE in 0.9% NACL PF 1 MG/10 ML SYRINGE. IV ONE (14:03)
--- NOTE | 2021-01-01 14:48 | PDOC4 ---
Operative Note Operative Note Operative Note: Preoperative Diagnosis: Lung cancer Postoperative Diagnosis: Same Procedure: Placement of Power Port-A-Cath using SonoSite guidance Surgeon: [employer] Director: Caroline BONILLA Anesthesia: Gen. EBL: 10 mL Specimen: None Drains: None Complications: None Indication: The patient is a 85 year old female who was diagnosed with lung cancer. A request was made for placement of a Port-A-Cath to allow for chemotherapy treatment. The details and risks of the procedure were discussed. The risks include bleeding, infection, vessel injury, pneumothorax, pain, anesthetic risk, port, catheter or tubing malfunction or dysfunction, potential need for additional surgery or procedure. The patient understands and would like to proceed. Description: The patient was placed supine on the operating table and general anesthesia was performed. The bilateral neck and chest were prepped with ChloraPrep and draped in a standard surgical manner. With SonoSite ultrasound guidance the right internal jugular vein was readily identified and appeared patent. Entry was made into the vein with the skinny introducer needle under ultrasound guidance. The skinny guidewire passed readily into the central venous system. A small incision was made at the skin exit site. The skinny sheath was then placed over the guidewire. The larger guidewire was then placed within the sheath into the central venous system. Intraoperative fluoroscopy confirmed good position of the guidewire in the central venous system. The dilator and sheath were then placed over the guidewire. The catheter portion was then inserted into the central venous system and visualized using fluoroscopy. A separate right upper chest skin incision was made with a scalpel. A subcutaneous pocket was developed with cautery of sufficient size to accommodate the port. The catheter was then tunneled subcutaneously to the level of the newly formed pocket. Using fluoroscopy the catheter was positioned with the tip in the distal superior vena cava. The catheter was then cut and assembled to the port. The port was then secured to the chest wall with two 2-0 Prolene sutures. Using the Laughlin needle the port readily aspirated and flushed without difficulty. Fluoroscopy confirmed good positioning of the catheter with no twists or kinks. The subcutaneous tissue was approximated with 3-0 Vicryl. The skin was then closed with 4-0 Monocryl. A sterile OpSite dressing was then applied. The patient tolerated the procedure well and was sent to the recovery room in stable condition. At the end of the case all counts were correct. LUNA STEELE MD Jan 01, 2021 14:48
--- NOTE | 2021-01-01 14:50 | DISCH ---
DISCHARGE INSTRUCTIONS Condition on Discharge Condition on Discharge: Stable Activity After Discharge Activity Instructions for Disc: Activity as tolerated Diet after Discharge Diet after Discharge: Regular Wound Incision Care Wound/Incision Care: Other, see below (keep dressing clean and dry) Follow-Up Follow up with: Oncology per appointment LUNA STEELE MD Jan 01, 2021 14:50
[2021-01-01 15:37] VITALS: BP 111/57
--- NOTE | 2021-01-01 16:02 | RAD ---
EXAM: Chest, single view. HISTORY: Catheter placement. COMPARISON: PET/CT dated 10/06/2020. FINDINGS: A frontal view of the chest is obtained. There is a right internal jugular port catheter wi th the tip in the superior vena cava. There is no pneumothorax. There is a spiculated left upper lobe mass, similar compared to the recent PET CT with allowing for differences in imaging modality. There is a stable small left pleural effusion. There is emphysema. There is biapical pleural parenchymal s carring. The heart is normal in size. There are calcified granulomas. IMPRESSION: 1. Right port catheter with the tip in the superior vena cava. 2. Spiculated left upper lobe mass better characterized on the prior PET/CT. 3. Stable small left pleural effusion. 4. Emphysema. Electronically signed by: Ayse Garber MD (01/01/2021 4:00 PM) [id number]
== END 2021-01-01 16:10 | disposition home or self-care (01) ==
LOC: SURG 10:19
PROVIDERS: ATTEND Surgery
DX: C34.90 Malignant neoplasm of unspecified part of unspecified bronchus or lung (principal); I10 Essential (primary) hypertension; J44.9 Chronic obstructive pulmonary disease, unspecified; E78.5 Hyperlipidemia, unspecified; K21.9 Gastro-esophageal reflux disease without esophagitis; F17.210 Nicotine dependence, cigarettes, uncomplicated; Z79.899 Other long term (current) drug therapy; Z98.51 Tubal ligation status; Z98.890 Other specified postprocedural states
CPT/HCPCS: 36561; 71045; 76937; 77001; A4364; A4930; A6254; A6258; C1788; J0690; J1100; J1644; J2370; J2405; J2704; J3010; J7040; 76000; A4452; A4657

== ENCOUNTER 2021-01-03 12:22 | Observation (INO) | payer MEDICARE ==
[~2021-01-03] VITALS: Ht 160 cm; Wt 36.2 kg
[~2021-01-03 12:22] MED LIST changes: -HEPARIN SODIUM 5,000 UNIT in IV NORMAL SALINE 500ML BAG 500 ML IRR ONE; -HYDROmorphone 2 MG/ML VIAL IVP PRN; -IV RINGERS,LACTATED 1000ML 1,000 ML IV SCH; -MORPHINE SULFATE 2 MG/ML VIAL. IVP PRN; -PROCHLORPERAZINE 10 MG/2 ML VIAL. IVP PRN; -ceFAZolin SODIUM IV Push 1 GM VIAL. IVP PRN; -fentaNYL PF VIAL 100 MCG/2 ML VIAL IVP PRN
--- NOTE | 2021-01-03 12:50 | ED.ADGEN ---
Past Medical History Past Medical History: Asthma, COPD, High Cholesterol, Hypertension Additional Past Medical Histor: HIGH CHOLESTEROL Past Surgical History: Other Additional Past Surgical Histo: Venous surgery on R leg, RADIATION Smoking Status: Former Smoker Alcohol Use: None Drug Use: None General Adult EDM: Chief Complaint: ABDOMINAL PAIN HPI: HPI: Patient is a 85-year-old female who arrives via wheelchair to the emergency department after experiencing a syncopal episode in preparation for receiving a chemotherapeutic treatment. Patient has a history of lung cancer for which she receives chemotherapy. Patient was having her port accessed and blood drawn when she experienced a syncopal episode. In the process the patient lost control of her bowels. Patient is unaware of how long she was unconscious however she denies any associated pain with this incident. Additionally she denies any shortness of air. She further denies any history of previous illness prior to this syncopal episode. She is now awake, alert and nontoxic-appearing. Review of Systems: Review of Systems: Constitutional: Denies fever or chills. [] Eyes: Denies change in visual acuity. [] HENT: Denies nasal congestion or sore throat. [] Respiratory: Denies cough or shortness of breath. [] Cardiovascular: Reports to syncopal episode. Denies chest pain or edema. [] GI: Denies abdominal pain, nausea, vomiting, bloody stools or diarrhea. [] : Denies dysuria. [] Musculoskeletal: Denies back pain or joint pain. [] Integument: Denies rash. [] Neurologic: Denies headache, focal weakness or sensory changes. [] Endocrine: Denies polyuria or polydipsia. [] Lymphatic: Denies swollen glands. [] Psychiatric: Denies depression or anxiety. [] Current Medications: Current Medications Medications (Trade) Dose Ordered Sig/Marilu Start Time Stop Time Status Last Admin Dose Admin Ondansetron HCl (Zofran) 4 mg PRN Q8HRS PRN 01/03/21 14:45 01/04/21 14:44 Sodium Chloride 1,000 ml @ 1,000 mls/hr 1X ONCE 01/03/21 15:00 01/03/21 15:59 Allergies: Allergies: Allergies Coded Allergies Type Severity Reaction Last Updated Verified No Known Drug Allergies 01/01/21 No Physical Exam: PE: Constitutional: Well developed, well nourished, no acute distress, non-toxic appearance. [] HENT: Normocephalic, atraumatic, bilateral external ears normal, oropharynx moist, no oral exudates, nose normal. [] Eyes: PERRLA, EOMI, conjunctiva normal, no discharge. [] Neck: Normal range of motion, no tenderness, supple, no stridor. [] Cardiovascular:Heart rate regular rhythm, no murmur [] Lungs & Thorax: Bilateral breath sounds clear to auscultation [] Abdomen: Bowel sounds normal, soft, no tenderness, no masses, no pulsatile m asses. [] Skin: Warm, dry, no erythema, no rash. [] Back: No tenderness, no CVA tenderness. [] Extremities: No tenderness, no cyanosis, no clubbing, ROM intact, no edema. [] Neurologic: Alert and oriented X 3, normal motor function, normal sensory function, no focal deficits noted. [] Psychologic: Affect normal, judgement normal, mood normal. [] Current Patient Data: Labs: Laboratory Tests Test 01/03/21 14:27 White Blood Count 8.2 x10^3/uL (4.0-11.0) Red Blood Count 3.34 x10^6/uL (3.50-5.40) L Hemoglobin 9.4 g/dL (12.0-15.5) L Hematocrit 28.2 % (36.0-47.0) L Mean Corpuscular Volume 85 fL (79-100) Mean Corpuscular Hemoglobin 28 pg (25-35) Mean Corpuscular Hemoglobin Concent 33 g/dL (31-37) Red Cell Distribution Width 22.6 % (11.5-14.5) H Platelet Count 358 x10^3/uL (140-400) Neutrophils (%) (Auto) 85 % (31-73) H Lymphocytes (%) (Auto) 5 % (24-48) L Monocytes (%) (Auto) 8 % (0-9) Eosinophils (%) (Auto) 1 % (0-3) Basophils (%) (Auto) 1 % (0-3) Neutrophils # (Auto) 7.0 x10^3/uL (1.8-7.7) Lymphocytes # (Auto) 0.4 x10^3/uL (1.0-4.8) L Monocytes # (Auto) 0.7 x10^3/uL (0.0-1.1) Eosinophils # (Auto) 0.1 x10^3/uL (0.0-0.7) Basophils # (Auto) 0.0 x10^3/uL (0.0-0.2) Platelet Estimate Pending Sodium Level 135 mmol/L (136-145) L Potassium Level 4.5 mmol/L (3.5-5.1) Chloride Level 101 mmol/L (98-107) Carbon Dioxide Level 25 mmol/L (21-32) Anion Gap 9 (6-14) Blood Urea Nitrogen 22 mg/dL (7-20) H Creatinine 0.8 mg/dL (0.6-1.0) Estimated GFR (Cockcroft-Gault) 82.9 BUN/Creatinine Ratio 28 (6-20) H Glucose Level 90 mg/dL (70-99) Calcium Level 8.9 mg/dL (8.5-10.1) Total Bilirubin 0.2 mg/dL (0.2-1.0) Aspartate Amino Transferase (AST) 21 U/L (15-37) Alanine Aminotransferase (ALT) 19 U/L (14-59) Alkaline Phosphatase 55 U/L (46-116) Troponin I Quantitative < 0.017 ng/mL (0.000-0.055) Total Protein 7.1 g/dL (6.4-8.2) Albumin 3.8 g/dL (3.4-5.0) Albumin/Globulin Ratio 1.2 (1.0-1.7) Laboratory Tests 01/03/21 14:27 Laboratory Tests 01/03/21 14:27 Vital Signs: Vital Signs Date Time Temp Pulse Resp B/P (MAP) Pulse Ox O2 Delivery O2 Flow Rate FiO2 01/03/21 13:48 97.7 75 16 114/52 (72) 100 Room Air 97.7 EKG: EKG: EKG was obtained and reveals a normal sinus rhythm with a ventricular rate of 72 bpm. There are premature atrial complexes present. Intervals are otherwise normal and there are no acute ST/T wave changes to denote ischemia. [] Heart Score: C/O Chest Pain: No HEART Score for Chest Pain: HEART Score for Chest Pain Response (Comments) Value History Slighlty/Non-Suspicious 0 ECG Normal 0 Age > 65 2 Risk Factors 1 or 2 Risk Factors 1 Troponin < Normal Limit 0 Total 3 Risk Factors: Risk Factors: DM, Current or recent (<one month) smoker, HTN, HLP, family history of CAD, obesity. Risk Scores: Score 0 - 3: 2.5% MACE over next 6 weeks - Discharge Home Score 4 - 6: 20.3% MACE over next 6 weeks - Admit for Clinical Observation Score 7 - 10: 72.7% MACE over next 6 weeks - Early Invasive Strategies Radiology/Procedures: Radiology/Procedures: [] Impression: [facility] [address] [place] [address] IMAGING REPORT Signed PATIENT: ALEXANDRA HAYES EACCOUNT: [id number] : 1935 LOCATION: ER AGE: 85 SEX: F EXAM STATUS: REG ER ORD. PHYSICIAN: GILMA CRUZ DO REASON: Syncope PROCEDURE: PORTABLE CHEST 1V EXAM: CHEST 1 VIEW History: Syncope COMPARISON: 01/01/2021 TECHNIQUE: Single portable radiograph of the chest FINDINGS: The cardiac silhouette is unremarkable. Right-sided Port-A-Cath is unchanged. Irregular mass left upper lobe of the lung unchanged. Bilateral lung emphysematous changes. Trace left pleural effusion. Destructive changes of left posterior lateral eighth rib again identified. IMPRESSION: Findings as above. Electronically signed by: Tomi Hinkle MD (01/03/2021 1:30 PM) [id number] DICTATED and SIGNED BY: TOMI HINKLE MD DATE: 01/03/21 [id number] 0 Course & Med Decision Making: Course & Med Decision Making Pertinent Labs and Imaging studies reviewed. (See chart for details) [] Dragon Disclaimer: Dragon Disclaimer: This electronic medical record was generated, in whole or in part, using a voice recognition dictation system. Departure Departure Impression: Primary Impression: Syncope Additional Impressions: History of lung cancer Prerenal azotemia Disposition: ADMITTED INPATIENT Admitting Physician: FARZAD Condition: STABLE Referrals: CHAYO IVEY MD (PCP) Problem Qualifiers GILMA CRUZ DO Jan 03, 2021 12:50
--- NOTE | 2021-01-03 13:32 | RAD ---
EXAM: CHEST 1 VIEW History: Syncope COMPARISON: 01/01/2021 TECHNIQUE: Single portable radiograph of the chest FINDINGS: The cardiac silhouette is unremarkable. Right-sided Port-A-Cath is unchanged. Irregular ma ss left upper lobe of the lung unchanged. Bilateral lung emphysematous changes. Trace left pleural ef fusion. Destructive changes of left posterior lateral eighth rib again identified. IMPRESSION: Findings as above. Electronically signed by: Tomi Hinkle MD (01/03/2021 1:30 PM) [id number]
--- NOTE | 2021-01-03 13:48 | EKG ---
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
[2021-01-03 14:34] LABS: BASO % 1 % (0-3); EOS # 0.1 x10^3/uL (0.0-0.7); EOS % 1 % (0-3); HEMATOCRIT 28.2 % (36.0-47.0); HEMOGLOBIN 9.4 g/dL (12.0-15.5); LYMPH # 0.4 x10^3/uL (1.0-4.8); LYMPH % 5 % (24-48); MEAN CORPUSCULAR HEMOGLOBIN 28 pg (25-35); MEAN CORPUSCULAR HGB CONC 33 g/dL (31-37); MEAN CORPUSCULAR VOLUME 85 fL (79-100); MONO # 0.7 x10^3/uL (0.0-1.1); MONO % 8 % (0-9); NEUT % 85 % (31-73); PLATELET COUNT 358 x10^3/uL (140-400); RED BLOOD COUNT 3.34 x10^6/uL (3.50-5.40); RED CELL DISTRIBUTION WIDTH 22.6 % (11.5-14.5); WHITE BLOOD COUNT 8.2 x10^3/uL (4.0-11.0)
[2021-01-03 14:43] LABS: CALCIUM 8.9 mg/dL (8.5-10.1); CREATININE 0.8 mg/dL (0.6-1.0); GFR 82.9; POTASSIUM 4.5 mmol/L (3.5-5.1)
[2021-01-03] MEDS ORDERED: ONDANSETRON PF 4 MG/2 ML VIAL. IV PRN (14:45)
[2021-01-03 14:47] LABS: ALBUMIN 3.8 g/dL (3.4-5.0); ALBUMIN/GLOBULIN RATIO 1.2 (1.0-1.7); TOTAL BILIRUBIN 0.2 mg/dL (0.2-1.0); TOTAL PROTEIN 7.1 g/dL (6.4-8.2)
[2021-01-03] MEDS ORDERED: IV NORMAL SALINE 1000ML BAG 1,000 ML IV ONE (15:00)
[2021-01-03 15:13] LABS: % BANDS 9 % (0-9); % EOS 1 % (0-5); % LYMPHS 6 % (24-48); % MONOS 3 % (0-10); % SEGS 81 % (35-66); ANISOCYTOSIS MOD; PLT ESTIMATE ADEQUATE (ADEQUATE); POIKILOCYTOSIS SLIGHT
[2021-01-03] MEDS ORDERED: HYDROcodone/APAP 5/325MG 1 TAB TABLET PO ONE (15:45)
--- NOTE | 2021-01-03 17:29 | NUR ---
PT ARRIVED TO UNIT VIA GURNEY. TELEMETRY APPLIED. VSS. BED IN LOW POSITION AND LOCKED, CALL LIGHT IN REACH.
[2021-01-03 17:30] VITALS: BP 143/63
--- NOTE | 2021-01-03 18:27 | PDOC1 ---
History and Physical Date of Admission Date of Admission DATE: 01/03/21 TIME: 18:21 Source Source: Chart review, Patient History of Present Illness History of Present Illness Ms. Cervantes, is a 85-year-old female admit s/p syncopal episode at the infusion center today. She was there for starting chemo for her lung cancer. Patient was having her port accessed and blood drawn when she experienced a syncopal episode. she stooled herself but had no post-ictal state or prodrome . Patient is unaware of how long she was unconscious however she denies any associated pain with this incident. she felt well before and after, but the episode happened when she was lookign at her site. she reports she is always anxious Past Medical History Cardiovascular: HTN GI: GERD Heme/Onc: No pertinent hx Hepatobiliary: No pertinent hx Psych: Anxiety Social History Smoke: No ALCOHOL: none Drugs: None Current Problem List Problem List Problems Medical Problems: (1) History of lung cancer Status: Acute (2) Prerenal azotemia Status: Acute (3) Syncope Status: Acute Current Medications Current Medications Current Medications Ondansetron HCl (Zofran) 4 mg PRN Q8HRS PRN IV NAUSEA/VOMITING; Start 01/03/21 at 14:45; Stop 01/04/21 at 14:44 Sodium Chloride 1,000 ml @ 1,000 mls/hr 1X ONCE IV Last administered on 01/03/21at 15:50; Start 01/03/21 at 15:00; Stop 01/03/21 at 15:59; Status DC Acetaminophen/ Hydrocodone Bitart (Lortab 5/325) 1 tab 1X ONCE PO Last administered on 01/03/21at 15:51; Start 01/03/21 at 15:45; Stop 01/03/21 at 15:46; Status DC Active Scripts Active Reported Iron (Ferrous Sulfate) 325 Mg Tablet 1 Tab PO DAILY 30 Days Hydrocodone-Acetamin 5-325 mg (Hydrocodone/Acetaminophen) 1 Each Tablet 1 Each PO PRN Q6-8HRS Pantoprazole Sodium (Pantoprazole Sodium) 40 Mg Tablet.dr 40 Mg PO DAILYAC Duoneb 0.5-3(2.5) Mg/3 Ml (Albuterol/Ipratropium) 3 Ml Ampul.neb 3 Ml NEB PRN QID PRN Benicar (Olmesartan Medoxomil) 40 Mg Tablet 1 Tab PO DAILY 30 Days Amlodipine Besylate 2.5 Mg Tablet 2.5 Mg PO DAILY Advair 100-50 Diskus (Fluticasone/Salmeterol) 1 Each Disk.w.dev 2 Puff IH BID Clopidogrel (Clopidogrel Bisulfate) 75 Mg Tablet 75 Mg PO Allergies Allergies: Coded Allergies: No Known Drug Allergies (Unverified , 01/01/21) ROS General: No: Chills, Night Sweats, Fatigue, Malaise, Appetite, Other PSYCHOLOGICAL ROS: YES: Anxiety; No: Behavioral Disorder, Concentration difficultie, Decreased libido, Depression, Disorientation, Hallucinations, Hostility, Irritablity, Memory difficulties, Mood Swings, Obsessive thoughts, Physical abuse, Sexual abuse, Sleep disturbances, Suicidal ideation, Other Eyes: No Blurry vision, No Decreased vision, No Double vision, No Dry eyes, No Excessive tearing, No Eye Pain, No Itchy Eyes, No Loss of vision, No Photophobia, No Scotomata, No Uses contacts, No Uses glasses, No Other HEENT: No: Heacaches, Visual Changes, Hearing change, Nasal congestion, Nasal discharge, Oral lesions, Sinus pain, Sore Throat, Epistaxis, Sneezing, Snoring, Tinnitus, Vertigo, Vocal changes, Other Respiratory: No: Cough, Hemoptysis, Orthopnea, Pleuritic Pain, Shortness of breath, SOB with excertion, Sputum Changes, Stridor, Tachypnea, Wheezing, Other Cardiovascular: No Chest Pain, No Palpitations, No Orthopnea, No Paroxysmal Noc. Dyspnea, No Edema, No Lt Headedness, No Other Gastrointestinal: Yes Nausea Genitourinary: No Dysuria, No Frequency, No Incontinence, No Hematuria, No Retention, No Discharge, No Urgency, No Pain, No Flank Pain, No Other, No , No , No , No , No , No , No Musculoskeletal: No Gait Disturbance, No Joint Pain, No Joint Stiffness, No Joint Swelling, No Muscle Pain, No Muscular Weakness, No Pain In:, No Swelling In:, No Other Neurological: No Behavorial Changes, No Bowel/Bladder ControlChng, No Confusion, No Dizziness, No Gait Disturbance, No Headaches, No Impaired Coord/balance, No Memory Loss, No Numbness/Tingling, No Seizures, No Speech Problems, No Tremors, No Visual Changes, No Weakness, No Other Skin: No Dry Skin, No Eczema, No Hair Changes, No Lumps, No Mole Changes, No Mottling, No Nail Changes, No Pruritus, No Rash, No Skin Lesion Changes, No Other, No Acne Physical Exam General: Alert, Cooperative, No acute distress HEENT: Atraumatic, PERRLA, Mucous membr. moist/pink Heart: S1S2, no gallops, no murmurs Extremities: No clubbing, No edema, Normal pulses Skin: No breakdown, No significant lesion Neuro: Normal gait, Normal speech, Normal tone, Sensation intact Psych/Mental Status: Mental status NL, Mood NL Vitals Vitals Vital Signs Date Time Temp Pulse Resp B/P (MAP) Pulse Ox O2 Delivery O2 Flow Rate FiO2 01/03/21 17:00 68 18 126/57 (80) 93 Room Air 01/03/21 13:48 97.7 97.7 Labs Labs Laboratory Tests Test 01/03/21 14:27 White Blood Count 8.2 x10^3/uL (4.0-11.0) Red Blood Count 3.34 x10^6/uL (3.50-5.40) Hemoglobin 9.4 g/dL (12.0-15.5) Hematocrit 28.2 % (36.0-47.0) Mean Corpuscular Volume 85 fL (79-100) Mean Corpuscular Hemoglobin 28 pg (25-35) Mean Corpuscular Hemoglobin Concent 33 g/dL (31-37) Red Cell Distribution Width 22.6 % (11.5-14.5) Platelet Count 358 x10^3/uL (140-400) Neutrophils (%) (Auto) 85 % (31-73) Lymphocytes (%) (Auto) 5 % (24-48) Monocytes (%) (Auto) 8 % (0-9) Eosinophils (%) (Auto) 1 % (0-3) Basophils (%) (Auto) 1 % (0-3) Neutrophils # (Auto) 7.0 x10^3/uL (1.8-7.7) Lymphocytes # (Auto) 0.4 x10^3/uL (1.0-4.8) Monocytes # (Auto) 0.7 x10^3/uL (0.0-1.1) Eosinophils # (Auto) 0.1 x10^3/uL (0.0-0.7) Basophils # (Auto) 0.0 x10^3/uL (0.0-0.2) Segmented Neutrophils % 81 % (35-66) Band Neutrophils % 9 % (0-9) Lymphocytes % 6 % (24-48) Monocytes % 3 % (0-10) Eosinophils % 1 % (0-5) Platelet Estimate Adequate (ADEQUATE) Poikilocytosis Slight Anisocytosis Mod Sodium Level 135 mmol/L (136-145) Potassium Level 4.5 mmol/L (3.5-5.1) Chloride Level 101 mmol/L (98-107) Carbon Dioxide Level 25 mmol/L (21-32) Anion Gap 9 (6-14) Blood Urea Nitrogen 22 mg/dL (7-20) Creatinine 0.8 mg/dL (0.6-1.0) Estimated GFR (Cockcroft-Gault) 82.9 BUN/Creatinine Ratio 28 (6-20) Glucose Level 90 mg/dL (70-99) Calcium Level 8.9 mg/dL (8.5-10.1) Total Bilirubin 0.2 mg/dL (0.2-1.0) Aspartate Amino Transf (AST/SGOT) 21 U/L (15-37) Alanine Aminotransferase (ALT/SGPT) 19 U/L (14-59) Alkaline Phosphatase 55 U/L (46-116) Troponin I Quantitative < 0.017 ng/mL (0.000-0.055) Total Protein 7.1 g/dL (6.4-8.2) Albumin 3.8 g/dL (3.4-5.0) Albumin/Globulin Ratio 1.2 (1.0-1.7) Laboratory Tests Test 01/03/21 14:27 White Blood Count 8.2 x10^3/uL (4.0-11.0) Red Blood Count 3.34 x10^6/uL (3.50-5.40) Hemoglobin 9.4 g/dL (12.0-15.5) Hematocrit 28.2 % (36.0-47.0) Mean Corpuscular Volume 85 fL (79-100) Mean Corpuscular Hemoglobin 28 pg (25-35) Mean Corpuscular Hemoglobin Concent 33 g/dL (31-37) Red Cell Distribution Width 22.6 % (11.5-14.5) Platelet Count 358 x10^3/uL (140-400) Neutrophils (%) (Auto) 85 % (31-73) Lymphocytes (%) (Auto) 5 % (24-48) Monocytes (%) (Auto) 8 % (0-9) Eosinophils (%) (Auto) 1 % (0-3) Basophils (%) (Auto) 1 % (0-3) Neutrophils # (Auto) 7.0 x10^3/uL (1.8-7.7) Lymphocytes # (Auto) 0.4 x10^3/uL (1.0-4.8) Monocytes # (Auto) 0.7 x10^3/uL (0.0-1.1) Eosinophils # (Auto) 0.1 x10^3/uL (0.0-0.7) Basophils # (Auto) 0.0 x10^3/uL (0.0-0.2) Segmented Neutrophils % 81 % (35-66) Band Neutrophils % 9 % (0-9) Lymphocytes % 6 % (24-48) Monocytes % 3 % (0-10) Eosinophils % 1 % (0-5) Platelet Estimate Adequate (ADEQUATE) Poikilocytosis Slight Anisocytosis Mod Sodium Level 135 mmol/L (136-145) Potassium Level 4.5 mmol/L (3.5-5.1) Chloride Level 101 mmol/L (98-107) Carbon Dioxide Level 25 mmol/L (21-32) Anion Gap 9 (6-14) Blood Urea Nitrogen 22 mg/dL (7-20) Creatinine 0.8 mg/dL (0.6-1.0) Estimated GFR (Cockcroft-Gault) 82.9 BUN/Creatinine Ratio 28 (6-20) Glucose Level 90 mg/dL (70-99) Calcium Level 8.9 mg/dL (8.5-10.1) Total Bilirubin 0.2 mg/dL (0.2-1.0) Aspartate Amino Transf (AST/SGOT) 21 U/L (15-37) Alanine Aminotransferase (ALT/SGPT) 19 U/L (14-59) Alkaline Phosphatase 55 U/L (46-116) Troponin I Quantitative < 0.017 ng/mL (0.000-0.055) Total Protein 7.1 g/dL (6.4-8.2) Albumin 3.8 g/dL (3.4-5.0) Albumin/Globulin Ratio 1.2 (1.0-1.7) VTE Prophylaxis Ordered VTE Prophylaxis Devices: Yes VTE Pharmacological Prophylaxi: No Assessment/Plan Assessment/Plan syncope, admit obs to R/o [facility] lung cancer, new diagnosis underweight, BMI 13.9 , malnutrition GERD COPD, stable anemia, chronic disease, on iron supplement Justifications for Admission Other Justification JESSICA FRY MD Jan 03, 2021 18:26
[2021-01-03] MEDS ORDERED: ALBUTEROL SULFATE 2.5 MG/3 ML NEBU. NEB PRN (18:45)
--- NOTE | 2021-01-03 19:00 | NUR ---
SHERRY COLÓN APPLIED TO BLE.
[2021-01-03 19:29] VITALS: BP 128/70
[2021-01-03] MEDS: HYDROcodone/APAP 5/325MG 1 TAB TABLET PO PRN (21:09)
[2021-01-03 22:41] VITALS: BP 120/50
[2021-01-04 03:34] VITALS: BP 116/57
[2021-01-04] MEDS: HYDROcodone/APAP 5/325MG 1 TAB TABLET PO PRN ×3 (05:01→15:39)
[2021-01-04 07:00] VITALS: BP 115/53
[2021-01-04] MEDS ORDERED: PANTOPRAZOLE 40 MG TABLET.DR. PO SCH (07:30)
[2021-01-04] MEDS ORDERED: FERROUS SULFATE 325 MG TABLET. PO SCH (08:00)
[2021-01-04] MEDS ORDERED: amLODIPine BESYLATE 5 MG TABLET PO SCH (09:00)
[2021-01-04] MEDS ORDERED: CLOPIDOGREL BISULFATE 75 MG TABLET PO SCH (09:00)
--- NOTE | 2021-01-04 10:32 | PDOC2 ---
CARDIAC CONSULT DATE OF CONSULT Date of Consult DATE: 01/04/21 TIME: 10:21 REASON FOR CONSULT Reason for Consult: syncope REFERRING PHYSICIAN Referring Physician: Dr. Fung SOURCE Source: Chart review, Patient HISTORY OF PRESENT ILLNESS HISTORY OF PRESENT ILLNESS This is an 85 yo female who presented secondary to syncopal episode. Patient has a history of lung CA and underwent radiation. Was to start first chemo treatment yesterday. Was having her port accessed when she experienced a syncopal episode. She reports port was access and they were drawing blood. Patient wanted to see what was going on so she asked for mirror. Patient looked down and port and then felt lightheaded and subsequently passed out. Was only out of a minute or two. Did have loss of bowel function. Was sent to the ED for further evaluation and treatment. She denies chest pain, palpitations, shortness of breath, or nausea/vomiting. Feels well this am and would like to go home. No acute events on tele. PAST MEDICAL HISTORY Cardiovascular: HTN, Other (PAD ) Pulmonary: COPD, Other (lung CA) GI: GERD Heme/Onc: Anemia NOS PAST SURGICAL HISTORY Past Surgical History: Tubal Ligation, Other (port placed ) FAMILY HISTORY Family History: Hypertension SOCIAL HISTORY Smoke: Quit ALCOHOL: none Drugs: None Lives: Alone CURRENT MEDICATIONS CURRENT MEDICATIONS Current Medications Medications (Trade) Dose Ordered Sig/Marilu Route PRN Reason Start Time Stop Time Status Last Admin Dose Admin Sodium Chloride 1,000 ml @ 1,000 mls/hr 1X ONCE IV 01/03/21 15:00 01/03/21 15:59 DC 01/03/21 15:50 Acetaminophen/ Hydrocodone Bitart (Lortab 5/325) 1 tab 1X ONCE PO 01/03/21 15:45 01/03/21 15:46 DC 01/03/21 15:51 Clopidogrel Bisulfate (Plavix) 75 mg DAILY PO 01/04/21 09:00 01/04/21 09:32 Ferrous Sulfate (Feosol) 325 mg DAILY08 PO 01/04/21 08:00 01/04/21 09:32 Acetaminophen/ Hydrocodone Bitart (Lortab 5/325) 1 tab PRN Q4HRS PRN PO MODERATE TO SEVERE PAIN 01/03/21 18:30 01/04/21 09:35 Albuterol Sulfate (Ventolin Neb Soln) 2.5 mg PRN QID PRN NEB SHORTNESS OF BREATH 01/03/21 18:45 01/04/21 09:49 Pantoprazole Sodium (Protonix) 40 mg DAILYAC PO 01/04/21 07:30 01/04/21 09:32 Amlodipine Besylate (Norvasc) 2.5 mg DAILY PO 01/04/21 09:00 01/04/21 09:34 ALLERGIES ALLERGIES: Coded Allergies: No Known Drug Allergies (Unverified , 01/01/21) ROS Review of System 14 point ROS conducted with pertinent positives noted above in hPI PHYSICAL EXAM General: Alert, Oriented X3, Cooperative, No acute distress HEENT: Atraumatic Lungs: Clear to auscultation Heart: Regular rate Abdomen: Soft, No tenderness Extremities: No edema, Normal pulses Skin: No significant lesion Neuro: Normal speech, Sensation intact Psych/Mental Status: Mental status NL, Mood NL MUSCULOSKELETAL: Osteoarthritic changes both hands VITALS/I&O VITALS/I&O: Vital Signs Date Time Temp Pulse Resp B/P (MAP) Pulse Ox O2 Delivery O2 Flow Rate FiO2 01/04/21 09:50 97 Room Air 01/04/21 09:34 76 115/53 01/04/21 07:00 97.8 18 97.8 I & O 01/03/21 01/03/21 01/04/21 15:00 23:00 07:00 Intake Total 0 ml 650 ml Balance 0 ml 650 ml LABS Lab: Laboratory Tests Test 01/03/21 14:27 White Blood Count 8.2 x10^3/uL (4.0-11.0) Red Blood Count 3.34 x10^6/uL (3.50-5.40) L Hemoglobin 9.4 g/dL (12.0-15.5) L Hematocrit 28.2 % (36.0-47.0) L Mean Corpuscular Volume 85 fL (79-100) Mean Corpuscular Hemoglobin 28 pg (25-35) Mean Corpuscular Hemoglobin Concent 33 g/dL (31-37) Red Cell Distribution Width 22.6 % (11.5-14.5) H Platelet Count 358 x10^3/uL (140-400) Neutrophils (%) (Auto) 85 % (31-73) H Lymphocytes (%) (Auto) 5 % (24-48) L Monocytes (%) (Auto) 8 % (0-9) Eosinophils (%) (Auto) 1 % (0-3) Basophils (%) (Auto) 1 % (0-3) Neutrophils # (Auto) 7.0 x10^3/uL (1.8-7.7) Lymphocytes # (Auto) 0.4 x10^3/uL (1.0-4.8) L Monocytes # (Auto) 0.7 x10^3/uL (0.0-1.1) Eosinophils # (Auto) 0.1 x10^3/uL (0.0-0.7) Basophils # (Auto) 0.0 x10^3/uL (0.0-0.2) Segmented Neutrophils % 81 % (35-66) H Band Neutrophils % 9 % (0-9) Lymphocytes % 6 % (24-48) L Monocytes % 3 % (0-10) Eosinophils % 1 % (0-5) Platelet Estimate Adequate (ADEQUATE) Poikilocytosis Slight Anisocytosis Mod Sodium Level 135 mmol/L (136-145) L Potassium Level 4.5 mmol/L (3.5-5.1) Chloride Level 101 mmol/L (98-107) Carbon Dioxide Level 25 mmol/L (21-32) Anion Gap 9 (6-14) Blood Urea Nitrogen 22 mg/dL (7-20) H Creatinine 0.8 mg/dL (0.6-1.0) Estimated GFR (Cockcroft-Gault) 82.9 BUN/Creatinine Ratio 28 (6-20) H Glucose Level 90 mg/dL (70-99) Calcium Level 8.9 mg/dL (8.5-10.1) Total Bilirubin 0.2 mg/dL (0.2-1.0) Aspartate Amino Transferase (AST) 21 U/L (15-37) Alanine Aminotransferase (ALT) 19 U/L (14-59) Alkaline Phosphatase 55 U/L (46-116) Troponin I Quantitative < 0.017 ng/mL (0.000-0.055) Total Protein 7.1 g/dL (6.4-8.2) Albumin 3.8 g/dL (3.4-5.0) Albumin/Globulin Ratio 1.2 (1.0-1.7) Laboratory Tests 01/03/21 14:27 Laboratory Tests 01/03/21 14:27 ASSESSMENT/PLAN ASSESSMENT/PLAN 1. Syncope; most probable vasovagal. Had port accessed and was having blood drawn for the first time when episode occurred. No acute events on tele. 2. Lung CA; s/p radiation. Was to start chemo yesterday 3. Hypertension; controlled 4. Hyperlipidemia 5. GERD Recommendations Baseline echo to assess LV systolic function, r/o cardiac anomalies [facility] Could consider outpatient event monitor, but episode most probable vasovagal SEBASTIAN SMALLS APRN Jan 04, 2021 10:32
[2021-01-04 11:00] VITALS: BP 118/60
[2021-01-04 11:10] VITALS: BP 102/47
[2021-01-04 11:15] VITALS: BP 106/52
[2021-01-04 11:20] VITALS: BP 94/55
--- NOTE | 2021-01-04 11:45 | NUR ---
SS following for discharge planning. SS reviewed pt chart and discussed with pt RN. Pt is from home and is currently on room air. Pt recently started chemotherapy for Lung Cancer. Port in place. Cardiology consulted. ECHO ordered. PT/OT ordered. SS will continue to follow for discharge planning.
--- NOTE | 2021-01-04 12:01 | CARD ---
MR#: [id number] Date of Study: 01/04/2021 Ordering Physician: SEBASTIAN SMALLS, Referring Physician: SEBASTIAN SMALLS, Tech: Kassandra Celeste [facility] APPROVED REPORT EXAM: Two-dimensional and M-mode echocardiogram with Doppler and color Doppler. Other Information Quality : Good INDICATION Syncope 2D DIMENSIONS RVDd2.7 (2.9-3.5cm)Left Atrium(2D)2.2 (1.6-4.0cm) IVSd0.7 (0.7-1.1cm)Aortic Root(2D)2.5 (2.0-3.7cm) LVDd3.6 (3.9-5.9cm)LVOT Diameter1.6 (1.8-2.4cm) PWd0.6 (0.7-1.1cm)LVDs2.4 (2.5-4.0cm) FS (%) 34.7 %SV35.5 ml LVEF(%)64.8 (>50%) Aortic Valve AoV Peak Mac.143.4cm/sAoV VTI25.6cm AO Peak GR.8.2mmHgLVOT Peak Mac.129.9cm/s LVOT VTI 22.19cmAO Mean GR.4mmHg MARIANO (VMAX)1.68lb2TZX (VTI)1.84cm2 AI P 1/2 Pygv221gr Mitral Valve MV E Koxphico68.5cm/sMV DECEL [id number] MV A Nepmekbt06.8cm/sMV AWF54pw E/A Ratio0.7MVA (PHT)3.31cm2 TDI E/Lateral E'10.6E/Medial E'10.3 Tricuspid Valve TR P. Ehxsfsjd794fn/sRAP SYYPJLMN2xmHd TR Peak Gr.52dbMtHRCQ82gfIv LEFT VENTRICLE The left ventricle is normal size. There is normal left ventricular wall thickness. The left ventricu lar systolic function is normal. The Ejection Fraction is 60-65%. There is normal LV segmental wall m otion. Transmitral Doppler flow pattern is Grade I-abnormal relaxation pattern. RIGHT VENTRICLE The right ventricle is normal size. The right ventricular systolic function is normal. ATRIA The left atrium size is normal. The right atrium size is normal. The interatrial septum is intact wit h no evidence for an atrial septal defect or patent foramen ovale as noted on 2-D or Doppler imaging. AORTIC VALVE The aortic valve is calcified but opens well. Doppler and Color Flow revealed mild to moderate aortic regurgitation. There is no significant aortic valvular stenosis. MITRAL VALVE The mitral valve is calcified but opens well. Mitral annular calcification is mild. There is no evide nce of mitral valve prolapse. There is no mitral valve stenosis. Doppler and Color Flow revealed no m itral valve regurgitation noted. TRICUSPID VALVE The tricuspid valve is normal in structure and function. Doppler and Color Flow revealed trace tricus pid regurgitation. There is mild pulmonary hypertension. The PA pressure was estimated at 30 mmHg. Th ere is no tricuspid valve stenosis. PULMONIC VALVE The pulmonic valve is not well visualized. Doppler and Color Flow revealed no pulmonic valvular regur gitation. There is no pulmonic valvular stenosis. GREAT VESSELS The aortic root is normal in size. The ascending aorta is not well seen. The IVC is normal in size an d collapses >50% with inspiration. PERICARDIAL EFFUSION There is no evidence of significant pericardial effusion. Critical Notification Critical Value: No <Conclusion> The left ventricular systolic function is normal. The Ejection Fraction is 60-65%. There is normal LV segmental wall motion. Transmitral Doppler flow pattern is Grade I-abnormal relaxation pattern. Mild to moderate aortic regurgitation. Trace tricuspid regurgitation. The PA pressure was estimated at 30 mmHg. There is no evidence of significant pericardial effusion. Signed by : Julio Mike, Electronically Approved : 01/04/2021 12:00:43
--- NOTE | 2021-01-04 13:03 | PDOC ---
[employer]GRESS NOTE Date of Service DOS: DATE: 01/04/21 TIME: 12:50 Chief Complaint Chief Complaint syncope, no event, echo done lung cancer, new diagnosis underweight, BMI 13.9 , malnutrition GERD COPD, stable anemia, chronic disease, on iron supplement History of Present Illness History of Present Illness feels well, would like to DC home she thinks it was getting too much blood drawn before chemo adn gthen her looking at her port which may have made her vagal, Vitals/I&O Vitals/I&O: Vital Signs Date Time Temp Pulse Resp B/P (MAP) Pulse Ox O2 Delivery O2 Flow Rate FiO2 01/04/21 12:06 Room Air 01/04/21 11:20 118 94/55 (68) 01/04/21 11:00 98.1 18 93 98.1 I & O 01/03/21 01/03/21 01/04/21 15:00 23:00 07:00 Intake Total 0 ml 650 ml Balance 0 ml 650 ml Physical Exam General: Alert, Cooperative, No acute distress Lungs: Clear Extremities: No clubbing, No edema, Normal pulses Skin: No breakdown, No significant lesion Labs Labs: Laboratory Tests Test 01/03/21 14:27 White Blood Count 8.2 x10^3/uL (4.0-11.0) Red Blood Count 3.34 x10^6/uL (3.50-5.40) Hemoglobin 9.4 g/dL (12.0-15.5) Hematocrit 28.2 % (36.0-47.0) Mean Corpuscular Volume 85 fL (79-100) Mean Corpuscular Hemoglobin 28 pg (25-35) Mean Corpuscular Hemoglobin Concent 33 g/dL (31-37) Red Cell Distribution Width 22.6 % (11.5-14.5) Platelet Count 358 x10^3/uL (140-400) Neutrophils (%) (Auto) 85 % (31-73) Lymphocytes (%) (Auto) 5 % (24-48) Monocytes (%) (Auto) 8 % (0-9) Eosinophils (%) (Auto) 1 % (0-3) Basophils (%) (Auto) 1 % (0-3) Neutrophils # (Auto) 7.0 x10^3/uL (1.8-7.7) Lymphocytes # (Auto) 0.4 x10^3/uL (1.0-4.8) Monocytes # (Auto) 0.7 x10^3/uL (0.0-1.1) Eosinophils # (Auto) 0.1 x10^3/uL (0.0-0.7) Basophils # (Auto) 0.0 x10^3/uL (0.0-0.2) Segmented Neutrophils % 81 % (35-66) Band Neutrophils % 9 % (0-9) Lymphocytes % 6 % (24-48) Monocytes % 3 % (0-10) Eosinophils % 1 % (0-5) Platelet Estimate Adequate (ADEQUATE) Poikilocytosis Slight Anisocytosis Mod Sodium Level 135 mmol/L (136-145) Potassium Level 4.5 mmol/L (3.5-5.1) Chloride Level 101 mmol/L (98-107) Carbon Dioxide Level 25 mmol/L (21-32) Anion Gap 9 (6-14) Blood Urea Nitrogen 22 mg/dL (7-20) Creatinine 0.8 mg/dL (0.6-1.0) Estimated GFR (Cockcroft-Gault) 82.9 BUN/Creatinine Ratio 28 (6-20) Glucose Level 90 mg/dL (70-99) Calcium Level 8.9 mg/dL (8.5-10.1) Total Bilirubin 0.2 mg/dL (0.2-1.0) Aspartate Amino Transf (AST/SGOT) 21 U/L (15-37) Alanine Aminotransferase (ALT/SGPT) 19 U/L (14-59) Alkaline Phosphatase 55 U/L (46-116) Troponin I Quantitative < 0.017 ng/mL (0.000-0.055) Total Protein 7.1 g/dL (6.4-8.2) Albumin 3.8 g/dL (3.4-5.0) Albumin/Globulin Ratio 1.2 (1.0-1.7) Assessment and Plan Assessmemt and Plan Problems Medical Problems: (1) History of lung cancer Status: Acute (2) Prerenal azotemia Status: Acute (3) Syncope Status: Acute Comment Review of Relevant I have reviewed the following items rui (where applicable) has been applied. Medications: Current Medications Medications (Trade) Dose Ordered Sig/Marilu Route PRN Reason Start Time Stop Time Status Last Admin Dose Admin Sodium Chloride 1,000 ml @ 1,000 mls/hr 1X ONCE IV 01/03/21 15:00 01/03/21 15:59 DC 01/03/21 15:50 Acetaminophen/ Hydrocodone Bitart (Lortab 5/325) 1 tab 1X ONCE PO 01/03/21 15:45 01/03/21 15:46 DC 01/03/21 15:51 Clopidogrel Bisulfate (Plavix) 75 mg DAILY PO 01/04/21 09:00 01/04/21 09:32 Ferrous Sulfate (Feosol) 325 mg DAILY08 PO 01/04/21 08:00 01/04/21 09:32 Acetaminophen/ Hydrocodone Bitart (Lortab 5/325) 1 tab PRN Q4HRS PRN PO MODERATE TO SEVERE PAIN 01/03/21 18:30 01/04/21 09:35 Albuterol Sulfate (Ventolin Neb Soln) 2.5 mg PRN QID PRN NEB SHORTNESS OF BREATH 01/03/21 18:45 01/04/21 09:49 Pantoprazole Sodium (Protonix) 40 mg DAILYAC PO 01/04/21 07:30 01/04/21 09:32 Amlodipine Besylate (Norvasc) 2.5 mg DAILY PO 01/04/21 09:00 01/04/21 09:34 Justifications for Admission Other Justification JESSICA FRY MD Jan 04, 2021 12:51
[2021-01-04 13:38] LABS: CHOLESTEROL/HDL RATIO 3.1
--- NOTE | 2021-01-04 14:18 | PDOC3 ---
Discharge Summary Visit Information Date of Admission: Jan 03, 2021 Date of Discharge: Jan 04, 2021 Final Diagnosis syncope, no event, echo done lung cancer, new diagnosis underweight, BMI 13.9 , malnutrition GERD COPD, stable anemia, chronic disease, on iron supplement Problems Medical Problems: (1) History of lung cancer Status: Acute (2) Prerenal azotemia Status: Acute (3) Syncope Status: Acute Brief Hospital Course Allergies Allergies Coded Allergies Type Severity Reaction Last Updated Verified No Known Drug Allergies 01/01/21 No Vital Signs Vital Signs Date Time Temp Pulse Resp B/P (MAP) Pulse Ox O2 Delivery O2 Flow Rate FiO2 01/04/21 12:06 Room Air 01/04/21 11:20 118 94/55 (68) 01/04/21 11:00 98.1 18 93 98.1 Lab Results Laboratory Tests Test 01/03/21 14:27 01/04/21 12:05 White Blood Count 8.2 x10^3/uL (4.0-11.0) Red Blood Count 3.34 x10^6/uL (3.50-5.40) Hemoglobin 9.4 g/dL (12.0-15.5) Hematocrit 28.2 % (36.0-47.0) Mean Corpuscular Volume 85 fL (79-100) Mean Corpuscular Hemoglobin 28 pg (25-35) Mean Corpuscular Hemoglobin Concent 33 g/dL (31-37) Red Cell Distribution Width 22.6 % (11.5-14.5) Platelet Count 358 x10^3/uL (140-400) Neutrophils (%) (Auto) 85 % (31-73) Lymphocytes (%) (Auto) 5 % (24-48) Monocytes (%) (Auto) 8 % (0-9) Eosinophils (%) (Auto) 1 % (0-3) Basophils (%) (Auto) 1 % (0-3) Neutrophils # (Auto) 7.0 x10^3/uL (1.8-7.7) Lymphocytes # (Auto) 0.4 x10^3/uL (1.0-4.8) Monocytes # (Auto) 0.7 x10^3/uL (0.0-1.1) Eosinophils # (Auto) 0.1 x10^3/uL (0.0-0.7) Basophils # (Auto) 0.0 x10^3/uL (0.0-0.2) Segmented Neutrophils % 81 % (35-66) Band Neutrophils % 9 % (0-9) Lymphocytes % 6 % (24-48) Monocytes % 3 % (0-10) Eosinophils % 1 % (0-5) Platelet Estimate Adequate (ADEQUATE) Poikilocytosis Slight Anisocytosis Mod Sodium Level 135 mmol/L (136-145) Potassium Level 4.5 mmol/L (3.5-5.1) Chloride Level 101 mmol/L (98-107) Carbon Dioxide Level 25 mmol/L (21-32) Anion Gap 9 (6-14) Blood Urea Nitrogen 22 mg/dL (7-20) Creatinine 0.8 mg/dL (0.6-1.0) Estimated GFR (Cockcroft-Gault) 82.9 BUN/Creatinine Ratio 28 (6-20) Glucose Level 90 mg/dL (70-99) Calcium Level 8.9 mg/dL (8.5-10.1) Total Bilirubin 0.2 mg/dL (0.2-1.0) Aspartate Amino Transf (AST/SGOT) 21 U/L (15-37) Alanine Aminotransferase (ALT/SGPT) 19 U/L (14-59) Alkaline Phosphatase 55 U/L (46-116) Troponin I Quantitative < 0.017 ng/mL (0.000-0.055) Total Protein 7.1 g/dL (6.4-8.2) Albumin 3.8 g/dL (3.4-5.0) Albumin/Globulin Ratio 1.2 (1.0-1.7) Triglycerides Level 54 mg/dL (0-150) Cholesterol Level 229 mg/dL (0-200) LDL Cholesterol, Calculated 144 mg/dL (0-100) VLDL Cholesterol, Calculated 11 mg/dL (0-40) Non-HDL Cholesterol Calculated 155 mg/dL (0-129) HDL Cholesterol 74 mg/dL (40-60) Cholesterol/HDL Ratio 3.1 Thyroid Stimulating Hormone (TSH) 1.105 uIU/mL (0.358-3.74) Laboratory Tests Test 01/03/21 14:27 01/04/21 12:05 White Blood Count 8.2 x10^3/uL (4.0-11.0) Red Blood Count 3.34 x10^6/uL (3.50-5.40) Hemoglobin 9.4 g/dL (12.0-15.5) Hematocrit 28.2 % (36.0-47.0) Mean Corpuscular Volume 85 fL (79-100) Mean Corpuscular Hemoglobin 28 pg (25-35) Mean Corpuscular Hemoglobin Concent 33 g/dL (31-37) Red Cell Distribution Width 22.6 % (11.5-14.5) Platelet Count 358 x10^3/uL (140-400) Neutrophils (%) (Auto) 85 % (31-73) Lymphocytes (%) (Auto) 5 % (24-48) Monocytes (%) (Auto) 8 % (0-9) Eosinophils (%) (Auto) 1 % (0-3) Basophils (%) (Auto) 1 % (0-3) Neutrophils # (Auto) 7.0 x10^3/uL (1.8-7.7) Lymphocytes # (Auto) 0.4 x10^3/uL (1.0-4.8) Monocytes # (Auto) 0.7 x10^3/uL (0.0-1.1) Eosinophils # (Auto) 0.1 x10^3/uL (0.0-0.7) Basophils # (Auto) 0.0 x10^3/uL (0.0-0.2) Segmented Neutrophils % 81 % (35-66) Band Neutrophils % 9 % (0-9) Lymphocytes % 6 % (24-48) Monocytes % 3 % (0-10) Eosinophils % 1 % (0-5) Platelet Estimate Adequate (ADEQUATE) Poikilocytosis Slight Anisocytosis Mod Sodium Level 135 mmol/L (136-145) Potassium Level 4.5 mmol/L (3.5-5.1) Chloride Level 101 mmol/L (98-107) Carbon Dioxide Level 25 mmol/L (21-32) Anion Gap 9 (6-14) Blood Urea Nitrogen 22 mg/dL (7-20) Creatinine 0.8 mg/dL (0.6-1.0) Estimated GFR (Cockcroft-Gault) 82.9 BUN/Creatinine Ratio 28 (6-20) Glucose Level 90 mg/dL (70-99) Calcium Level 8.9 mg/dL (8.5-10.1) Total Bilirubin 0.2 mg/dL (0.2-1.0) Aspartate Amino Transf (AST/SGOT) 21 U/L (15-37) Alanine Aminotransferase (ALT/SGPT) 19 U/L (14-59) Alkaline Phosphatase 55 U/L (46-116) Troponin I Quantitative < 0.017 ng/mL (0.000-0.055) Total Protein 7.1 g/dL (6.4-8.2) Albumin 3.8 g/dL (3.4-5.0) Albumin/Globulin Ratio 1.2 (1.0-1.7) Triglycerides Level 54 mg/dL (0-150) Cholesterol Level 229 mg/dL (0-200) LDL Cholesterol, Calculated 144 mg/dL (0-100) VLDL Cholesterol, Calculated 11 mg/dL (0-40) Non-HDL Cholesterol Calculated 155 mg/dL (0-129) HDL Cholesterol 74 mg/dL (40-60) Cholesterol/HDL Ratio 3.1 Thyroid Stimulating Hormone (TSH) 1.105 uIU/mL (0.358-3.74) Brief Hospital Course Ms. Cervantes is a 85 old female had syncope event at infusion center to start chemo for her lung cancer. she thinks they geronimo too much blood, then she looked at the port and access site and then she passed out and she was anxious and nervous. likely vagal event, tele OK CV consulted, echo done, Discharge Information Condition at Discharge: Improved Follow Up: Weeks Disposition/Orders: D/C to Home Scheduled Amlodipine Besylate (Amlodipine Besylate) 2.5 Mg Tablet, 2.5 MG PO DAILY for rx, (Reported) Entered as Reported by: STEFAN HEART on 10/04/20 1114 Last Action: Reviewed on 01/03/211828 by MARIE WELCH, RN Ferrous Sulfate (Iron) 325 Mg Tablet, 1 TAB PO DAILY for anemia for 30 Days, #30 Ref 0 (Reported) Entered as Reported by: GABRIELA SANON on 12/28/20 1353 Last Action: Reviewed on 01/03/211828 by MARIE WELCH, RN Fluticasone/Salmeterol (Advair 100-50 Diskus) 1 Each Disk.w.dev, 2 PUFF IH BID for rx, #1 Ref 5 (Reported) Entered as Reported by: STEFAN HEART on 10/04/201113 Last Action: Reviewed on 01/03/211828 by MARIE WELCH RN Hydrocodone/Acetaminophen (Hydrocodone-Acetamin 5-325 mg) 1 Each Tablet, 1 EACH PO PRN Q6-8HRS for pain, (Reported) Entered as Reported by: GABRIELA SANON on 12/28/20 1352 Last Action: Reviewed on 01/03/211828 by MARIE WELCH RN Olmesartan Medoxomil (Benicar) 40 Mg Tablet, 1 TAB PO DAILY for rx for 30 Days, #30 Ref 0 (Reported) Entered as Reported by: STEFAN HEART on 10/04/201113 Last Action: Reviewed on 01/03/211828 by MARIE WELCH RN Pantoprazole Sodium (Pantoprazole Sodium ) 40 Mg Tablet.dr, 40 MG PO DAILYAC for GERD, (Reported) Entered as Reported by: GABRIELA SAONN on 12/28/20 1348 Last Action: Reviewed on 01/03/211828 by MARIE WELCH RN Scheduled PRN Ipratropium/Albuterol Sulfate (Duoneb 0.5-3(2.5) Mg/3 Ml) 3 Ml Ampul.neb, 3 ML NEB PRN QID PRN for COPD, (Reported) Entered as Reported by: STEFAN HEART on 10/04/201114 Last Action: Reviewed on 01/03/211828 by MRAIE WELCH RN Miscellaneous Medications Clopidogrel Bisulfate (Clopidogrel) 75 Mg Tablet, 75 MG PO, (Reported) Entered as Reported by: AGATA LLANOS on 10/21/13 1726 Last Action: Reviewed on 01/03/211828 by MARIE WELCH RN Discontinued Medications Tramadol Hcl (Tramadol Hcl) 50 Mg Tablet, 50 MG PO Q6HRS PRN for PAIN, (Reported) Entered as Reported by: STEFAN HEART on 10/04/201113 Patient Instructions Patient Instructions pt seen x2, discussed at cardiology waiting room with her after echo '> 30 min Justicifation of Admission Dx: Justifications for Admission: Justification of Admission Dx: No (obs) JESSICA FRY MD Jan 04, 2021 14:18
[2021-01-04] MEDS ORDERED: HEPARIN PF 500 UNIT/5 ML DISP.SYRIN. IVP ONE (15:30)
--- NOTE | 2021-01-04 16:27 | NUR ---
Discharge Note: ALEXANDRA HAYES Discharge instructions and discharge home medications reviewed with Patient and a copy given. All questions have been answered and understanding verbalized. The following instructions and handouts were given: discharge and follow up instructions Discontinued lines and drains: Port A Cath intact. Patient discharged to Home or Self Care with Family Member via Wheelchair
== END 2021-01-04 17:05 | disposition home or self-care (01) ==
LOC: ER 12:22 → 2 NORTH 14:40
PROVIDERS: ADMIT Internal Medicine; ATTEND Internal Medicine
DX: R55 Syncope and collapse (principal); C34.90 Malignant neoplasm of unspecified part of unspecified bronchus or lung; D63.8 Anemia in other chronic diseases classified elsewhere; E46 Unspecified protein-calorie malnutrition; E78.00 Pure hypercholesterolemia, unspecified; E78.5 Hyperlipidemia, unspecified; I10 Essential (primary) hypertension; J44.9 Chronic obstructive pulmonary disease, unspecified; F41.9 Anxiety disorder, unspecified; R79.89 Other specified abnormal findings of blood chemistry; K21.9 Gastro-esophageal reflux disease without esophagitis; Z68.1 Body mass index [BMI] 19.9 or less, adult; Z87.891 Personal history of nicotine dependence; Z92.3 Personal history of irradiation; Z98.51 Tubal ligation status; Z98.890 Other specified postprocedural states; Z79.899 Other long term (current) drug therapy; Z79.02 Long term (current) use of antithrombotics/antiplatelets
CPT/HCPCS: 36415; 71045; 80053; 80061; 84443; 84484; 85007; 85025; 93005; 93306; 94640; 96361; 96374; 97162; 99285; G0378; J1642; J7030; J7613; G0379

== ENCOUNTER → 2021-01-12 | Outpatient (CLI) | payer MEDICARE ==
[2021-01-04 11:20] VITALS: BP 94/55
[2021-01-12 12:49] LABS: BASO % 1 % (0-3); EOS # 0.3 x10^3/uL (0.0-0.7); EOS % 4 % (0-3); HEMATOCRIT 27.3 % (36.0-47.0); HEMOGLOBIN 9.1 g/dL (12.0-15.5); LYMPH # 0.9 x10^3/uL (1.0-4.8); LYMPH % 14 % (24-48); MEAN CORPUSCULAR HEMOGLOBIN 28 pg (25-35); MEAN CORPUSCULAR HGB CONC 33 g/dL (31-37); MEAN CORPUSCULAR VOLUME 85 fL (79-100); MONO # 0.8 x10^3/uL (0.0-1.1); MONO % 12 % (0-9); NEUT # 4.5 x10^3/uL (1.8-7.7); NEUT % 69 % (31-73); PLATELET COUNT 442 x10^3/uL (140-400); RED BLOOD COUNT 3.21 x10^6/uL (3.50-5.40); RED CELL DISTRIBUTION WIDTH 21.2 % (11.5-14.5); WHITE BLOOD COUNT 6.5 x10^3/uL (4.0-11.0)
[2021-01-12 12:55] LABS: CALCIUM 9.1 mg/dL (8.5-10.1); CREATININE 0.9 mg/dL (0.6-1.0); GFR 72.4; POTASSIUM 5.2 mmol/L (3.5-5.1)
[2021-01-12 13:01] LABS: ALBUMIN 3.9 g/dL (3.4-5.0); ALBUMIN/GLOBULIN RATIO 1.1 (1.0-1.7); TOTAL BILIRUBIN 0.2 mg/dL (0.2-1.0); TOTAL PROTEIN 7.3 g/dL (6.4-8.2)
== END ==
LOC: ONCLAB 12:24
PROVIDERS: ATTEND Internal Medicine Hematology & Oncology
DX: C34.82 Malignant neoplasm of overlapping sites of left bronchus and lung (principal)
CPT/HCPCS: 36415; 80053; 85025

== ENCOUNTER → 2021-01-30 | Outpatient (CLI) | payer MEDICARE ==
[2021-01-04 11:20] VITALS: BP 94/55
[2021-01-30 13:25] LABS: BASO % 0 % (0-3); EOS # 0.1 x10^3/uL (0.0-0.7); EOS % 1 % (0-3); HEMATOCRIT 22.4 % (36.0-47.0); HEMOGLOBIN 7.9 g/dL (12.0-15.5); LYMPH # 0.5 x10^3/uL (1.0-4.8); LYMPH % 6 % (24-48); MEAN CORPUSCULAR HEMOGLOBIN 31 pg (25-35); MEAN CORPUSCULAR HGB CONC 35 g/dL (31-37); MEAN CORPUSCULAR VOLUME 88 fL (79-100); MONO # 0.6 x10^3/uL (0.0-1.1); MONO % 7 % (0-9); NEUT # 8.1 x10^3/uL (1.8-7.7); NEUT % 86 % (31-73); PLATELET COUNT 444 x10^3/uL (140-400); RED BLOOD COUNT 2.55 x10^6/uL (3.50-5.40); RED CELL DISTRIBUTION WIDTH 17.3 % (11.5-14.5); WHITE BLOOD COUNT 9.4 x10^3/uL (4.0-11.0)
[2021-01-30 13:38] LABS: CALCIUM 8.6 mg/dL (8.5-10.1); CREATININE 0.9 mg/dL (0.6-1.0); GFR 72.4; POTASSIUM 4.7 mmol/L (3.5-5.1)
[2021-01-30 13:54] LABS: ALBUMIN 3.8 g/dL (3.4-5.0); ALBUMIN/GLOBULIN RATIO 1.1 (1.0-1.7); TOTAL BILIRUBIN 0.2 mg/dL (0.2-1.0); TOTAL PROTEIN 7.2 g/dL (6.4-8.2)
[2021-01-30 14:12] LABS: % BANDS 1 % (0-9); % EOS 3 % (0-5); % LYMPHS 5 % (24-48); % MONOS 1 % (0-10); % SEGS 90 % (35-66)
[2021-01-30 14:13] LABS: PLT ESTIMATE INCREASED (ADEQUATE)
[2021-01-30 15:46] LABS: ANISOCYTOSIS SLIGHT; POLYCHROMASIA SLIGHT; SCHISTOCYTES OCC
== END ==
LOC: ONCLAB 12:32
PROVIDERS: ATTEND Internal Medicine Hematology & Oncology
DX: C34.82 Malignant neoplasm of overlapping sites of left bronchus and lung (principal)
CPT/HCPCS: 36415; 80053; 82728; 83540; 83550; 85007; 85025

== ENCOUNTER → 2021-02-22 | Outpatient (CLI) | payer MEDICARE ==
[2021-02-22 12:00] LABS: BASO % 1 % (0-3); EOS # 0.2 x10^3/uL (0.0-0.7); EOS % 5 % (0-3); LYMPH # 0.6 x10^3/uL (1.0-4.8); LYMPH % 13 % (24-48); MEAN CORPUSCULAR HEMOGLOBIN 27 pg (25-35); MEAN CORPUSCULAR HGB CONC 34 g/dL (31-37); MEAN CORPUSCULAR VOLUME 81 fL (79-100); MONO # 0.4 x10^3/uL (0.0-1.1); MONO % 8 % (0-9); NEUT # 3.6 x10^3/uL (1.8-7.7); NEUT % 74 % (31-73); PLATELET COUNT 613 x10^3/uL (140-400); RED BLOOD COUNT 2.26 x10^6/uL (3.50-5.40); RED CELL DISTRIBUTION WIDTH 18.2 % (11.5-14.5); WHITE BLOOD COUNT 4.8 x10^3/uL (4.0-11.0)
[2021-02-22 12:12] LABS: CALCIUM 8.8 mg/dL (8.5-10.1); CREATININE 0.9 mg/dL (0.6-1.0); GFR 72.4; POTASSIUM 4.5 mmol/L (3.5-5.1)
[2021-02-22 12:17] LABS: ALBUMIN 3.7 g/dL (3.4-5.0); ALBUMIN/GLOBULIN RATIO 1.1 (1.0-1.7); HEMATOCRIT 18.4 % (36.0-47.0); HEMOGLOBIN 6.2 g/dL (12.0-15.5); TOTAL BILIRUBIN 0.2 mg/dL (0.2-1.0)
[2021-02-22 13:09] LABS: BASO # 0.1 x10^3/uL (0.0-0.2); BASO % 2 % (0-3); EOS # 0.2 x10^3/uL (0.0-0.7); EOS % 3 % (0-3); LYMPH # 0.6 x10^3/uL (1.0-4.8); LYMPH % 12 % (24-48); MEAN CORPUSCULAR HEMOGLOBIN 27 pg (25-35); MEAN CORPUSCULAR HGB CONC 33 g/dL (31-37); MEAN CORPUSCULAR VOLUME 82 fL (79-100); MONO # 0.4 x10^3/uL (0.0-1.1); MONO % 8 % (0-9); NEUT # 3.8 x10^3/uL (1.8-7.7); NEUT % 75 % (31-73); PLATELET COUNT 645 x10^3/uL (140-400); RED BLOOD COUNT 2.47 x10^6/uL (3.50-5.40); RED CELL DISTRIBUTION WIDTH 18.3 % (11.5-14.5)
[2021-02-22 13:21] LABS: HEMATOCRIT 20.2 % (36.0-47.0); HEMOGLOBIN 6.7 g/dL (12.0-15.5)
== END ==
LOC: ONCLAB 11:12
PROVIDERS: ATTEND Physician Assistant
DX: D50.9 Iron deficiency anemia, unspecified (principal)
CPT/HCPCS: 36415; 80053; 85025

== ENCOUNTER → 2021-03-01 | Outpatient (CLI) | payer MEDICARE ==
[2021-03-01 11:41] LABS: BASO % 1 % (0-3); EOS # 0.2 x10^3/uL (0.0-0.7); EOS % 4 % (0-3); HEMATOCRIT 21.2 % (36.0-47.0); HEMOGLOBIN 7.1 g/dL (12.0-15.5); LYMPH # 0.8 x10^3/uL (1.0-4.8); LYMPH % 13 % (24-48); MEAN CORPUSCULAR HEMOGLOBIN 30 pg (25-35); MEAN CORPUSCULAR HGB CONC 34 g/dL (31-37); MEAN CORPUSCULAR VOLUME 88 fL (79-100); MONO # 0.6 x10^3/uL (0.0-1.1); MONO % 9 % (0-9); NEUT # 4.8 x10^3/uL (1.8-7.7); NEUT % 74 % (31-73); PLATELET COUNT 429 x10^3/uL (140-400); RED CELL DISTRIBUTION WIDTH 26.5 % (11.5-14.5); WHITE BLOOD COUNT 6.5 x10^3/uL (4.0-11.0)
[2021-03-01 11:51] LABS: CALCIUM 8.8 mg/dL (8.5-10.1); CREATININE 0.8 mg/dL (0.6-1.0); GFR 82.7; POTASSIUM 4.4 mmol/L (3.5-5.1)
[2021-03-01 12:09] LABS: ALBUMIN 3.8 g/dL (3.4-5.0); ALBUMIN/GLOBULIN RATIO 1.2 (1.0-1.7); TOTAL BILIRUBIN 0.2 mg/dL (0.2-1.0); TOTAL PROTEIN 7.1 g/dL (6.4-8.2)
[2021-03-01 14:34] LABS: ANISOCYTOSIS MOD; PLT ESTIMATE ADEQUATE (ADEQUATE)
== END ==
LOC: ONCLAB 10:42
PROVIDERS: ATTEND Physician Assistant
DX: C34.82 Malignant neoplasm of overlapping sites of left bronchus and lung (principal)
CPT/HCPCS: 36415; 80053; 85025

== ENCOUNTER → 2021-03-15 | Outpatient (CLI) | payer MEDICARE ==
[2021-03-15 11:24] LABS: BASO # 0.1 x10^3/uL (0.0-0.2); BASO % 1 % (0-3); EOS # 0.2 x10^3/uL (0.0-0.7); EOS % 2 % (0-3); HEMATOCRIT 29.2 % (36.0-47.0); HEMOGLOBIN 9.6 g/dL (12.0-15.5); LYMPH # 0.8 x10^3/uL (1.0-4.8); LYMPH % 11 % (24-48); MEAN CORPUSCULAR HEMOGLOBIN 31 pg (25-35); MEAN CORPUSCULAR HGB CONC 33 g/dL (31-37); MEAN CORPUSCULAR VOLUME 94 fL (79-100); MONO # 0.4 x10^3/uL (0.0-1.1); MONO % 6 % (0-9); NEUT # 5.7 x10^3/uL (1.8-7.7); NEUT % 80 % (31-73); PLATELET COUNT 430 x10^3/uL (140-400); RED BLOOD COUNT 3.11 x10^6/uL (3.50-5.40); RED CELL DISTRIBUTION WIDTH 23.9 % (11.5-14.5); WHITE BLOOD COUNT 7.1 x10^3/uL (4.0-11.0)
[2021-03-15 12:33] LABS: PLT ESTIMATE INCREASED (ADEQUATE)
[2021-03-15 12:34] LABS: ANISOCYTOSIS MOD
== END ==
LOC: ONCLAB 10:49
PROVIDERS: ATTEND Physician Assistant
DX: C34.82 Malignant neoplasm of overlapping sites of left bronchus and lung (principal)
CPT/HCPCS: 36415; 85025

== ENCOUNTER → 2021-03-22 | Outpatient (CLI) | payer MEDICARE ==
[2021-03-22 10:24] LABS: BASO % 1 % (0-3); EOS # 0.3 x10^3/uL (0.0-0.7); EOS % 5 % (0-3); HEMATOCRIT 27.9 % (36.0-47.0); HEMOGLOBIN 9.2 g/dL (12.0-15.5); LYMPH # 0.6 x10^3/uL (1.0-4.8); LYMPH % 9 % (24-48); MEAN CORPUSCULAR HEMOGLOBIN 31 pg (25-35); MEAN CORPUSCULAR HGB CONC 33 g/dL (31-37); MEAN CORPUSCULAR VOLUME 93 fL (79-100); MONO # 0.4 x10^3/uL (0.0-1.1); MONO % 7 % (0-9); NEUT % 79 % (31-73); PLATELET COUNT 385 x10^3/uL (140-400); RED CELL DISTRIBUTION WIDTH 21.4 % (11.5-14.5); WHITE BLOOD COUNT 6.4 x10^3/uL (4.0-11.0)
[2021-03-22 10:33] LABS: CALCIUM 9.2 mg/dL (8.5-10.1); CREATININE 0.8 mg/dL (0.6-1.0); GFR 82.7; POTASSIUM 4.2 mmol/L (3.5-5.1)
[2021-03-22 10:50] LABS: ALBUMIN 3.7 g/dL (3.4-5.0); ALBUMIN/GLOBULIN RATIO 1.1 (1.0-1.7); TOTAL BILIRUBIN 0.2 mg/dL (0.2-1.0); TOTAL PROTEIN 7.1 g/dL (6.4-8.2)
[2021-03-22 11:48] LABS: ANISOCYTOSIS PRESENT; PLT ESTIMATE ADEQUATE (ADEQUATE)
== END ==
LOC: ONCLAB 10:01
PROVIDERS: ATTEND Internal Medicine Hematology & Oncology
DX: C34.82 Malignant neoplasm of overlapping sites of left bronchus and lung (principal)
CPT/HCPCS: 36415; 80053; 82607; 82728; 82746; 83540; 83550; 85025

== ENCOUNTER → 2021-04-19 | Outpatient (CLI) | payer MEDICARE ==
[2021-04-13 14:57] VITALS: BP 155/60
[~2021-04-19] MED LIST changes: +DOXY100T PO; +PRED20TA PO
[2021-04-19 11:28] LABS: BASO % 1 % (0-3); EOS # 0.3 x10^3/uL (0.0-0.7); EOS % 3 % (0-3); HEMATOCRIT 29.7 % (36.0-47.0); HEMOGLOBIN 9.6 g/dL (12.0-15.5); LYMPH # 0.8 x10^3/uL (1.0-4.8); LYMPH % 9 % (24-48); MEAN CORPUSCULAR HEMOGLOBIN 29 pg (25-35); MEAN CORPUSCULAR HGB CONC 33 g/dL (31-37); MEAN CORPUSCULAR VOLUME 90 fL (79-100); MONO # 0.7 x10^3/uL (0.0-1.1); MONO % 7 % (0-9); NEUT # 7.7 x10^3/uL (1.8-7.7); NEUT % 81 % (31-73); PLATELET COUNT 457 x10^3/uL (140-400); RED CELL DISTRIBUTION WIDTH 20.1 % (11.5-14.5); WHITE BLOOD COUNT 9.6 x10^3/uL (4.0-11.0)
[2021-04-19 11:43] LABS: CALCIUM 9.1 mg/dL (8.5-10.1); CREATININE 0.9 mg/dL (0.6-1.0); GFR 72.2; POTASSIUM 4.3 mmol/L (3.5-5.1)
[2021-04-19 11:53] LABS: ALBUMIN 3.5 g/dL (3.4-5.0); ALBUMIN/GLOBULIN RATIO 1.1 (1.0-1.7); TOTAL BILIRUBIN 0.3 mg/dL (0.2-1.0); TOTAL PROTEIN 6.7 g/dL (6.4-8.2)
[2021-04-19 13:21] LABS: PLT ESTIMATE INCREASED (ADEQUATE)
[2021-04-19 13:24] LABS: ANISOCYTOSIS MOD; TOXIC GRANULATION PRESENT
== END ==
LOC: ONCLAB 10:30
PROVIDERS: ATTEND Physician Assistant
DX: C34.82 Malignant neoplasm of overlapping sites of left bronchus and lung (principal)
CPT/HCPCS: 36415; 80053; 85025

== ENCOUNTER → 2021-05-10 | Outpatient (CLI) | payer MEDICARE ==
[2021-05-07 15:00] VITALS: BP 141/40
[~2021-05-10] MED LIST changes: +METH4TAB2 PO
[2021-05-10 11:05] LABS: BASO % 0 % (0-3); EOS # 0.1 x10^3/uL (0.0-0.7); EOS % 1 % (0-3); LYMPH # 0.3 x10^3/uL (1.0-4.8); LYMPH % 3 % (24-48); MEAN CORPUSCULAR HEMOGLOBIN 35 pg (25-35); MEAN CORPUSCULAR HGB CONC 33 g/dL (31-37); MEAN CORPUSCULAR VOLUME 104 fL (79-100); MONO # 0.4 x10^3/uL (0.0-1.1); MONO % 4 % (0-9); NEUT # 9.4 x10^3/uL (1.8-7.7); NEUT % 92 % (31-73); PLATELET COUNT 324 x10^3/uL (140-400); RED BLOOD COUNT 1.69 x10^6/uL (3.50-5.40); RED CELL DISTRIBUTION WIDTH 22.1 % (11.5-14.5); WHITE BLOOD COUNT 10.1 x10^3/uL (4.0-11.0)
[2021-05-10 11:12] LABS: CALCIUM 8.1 mg/dL (8.5-10.1); CREATININE 0.8 mg/dL (0.6-1.0); GFR 82.7
[2021-05-10 11:13] LABS: HEMATOCRIT 17.7 % (36.0-47.0); HEMOGLOBIN 5.9 g/dL (12.0-15.5)
[2021-05-10 11:18] LABS: ALBUMIN 2.7 g/dL (3.4-5.0); ALBUMIN/GLOBULIN RATIO 1.1 (1.0-1.7); TOTAL BILIRUBIN 0.4 mg/dL (0.2-1.0); TOTAL PROTEIN 5.2 g/dL (6.4-8.2)
[2021-05-10 13:45] LABS: % BANDS 3 % (0-9); % EOS 1 % (0-5); % LYMPHS 2 % (24-48); % MONOS 3 % (0-10); % SEGS 91 % (35-66); ANISOCYTOSIS MOD; PLT ESTIMATE ADEQUATE (ADEQUATE); POIKILOCYTOSIS SLIGHT
[2021-05-10 13:46] LABS: POLYCHROMASIA SLIGHT
== END ==
LOC: ONCLAB 10:34
PROVIDERS: ATTEND Physician Assistant
DX: C34.82 Malignant neoplasm of overlapping sites of left bronchus and lung (principal)
CPT/HCPCS: 36415; 80053; 85007; 85025

== ENCOUNTER → 2021-05-24 | Outpatient (CLI) | payer MEDICARE ==
[2021-05-17 15:00] VITALS: BP 126/97
[2021-05-24 11:54] LABS: BASO % 1 % (0-3); EOS # 0.1 x10^3/uL (0.0-0.7); EOS % 3 % (0-3); HEMATOCRIT 30.4 % (36.0-47.0); HEMOGLOBIN 9.9 g/dL (12.0-15.5); LYMPH # 0.5 x10^3/uL (1.0-4.8); LYMPH % 10 % (24-48); MEAN CORPUSCULAR HEMOGLOBIN 31 pg (25-35); MEAN CORPUSCULAR HGB CONC 33 g/dL (31-37); MEAN CORPUSCULAR VOLUME 94 fL (79-100); MONO # 0.3 x10^3/uL (0.0-1.1); MONO % 8 % (0-9); NEUT # 3.4 x10^3/uL (1.8-7.7); NEUT % 79 % (31-73); PLATELET COUNT 520 x10^3/uL (140-400); RED BLOOD COUNT 3.23 x10^6/uL (3.50-5.40); RED CELL DISTRIBUTION WIDTH 18.8 % (11.5-14.5); WHITE BLOOD COUNT 4.4 x10^3/uL (4.0-11.0)
[2021-05-24 12:19] LABS: CALCIUM 9.1 mg/dL (8.5-10.1); CREATININE 0.7 mg/dL (0.6-1.0); GFR 96.5; POTASSIUM 3.9 mmol/L (3.5-5.1)
[2021-05-24 12:39] LABS: ALBUMIN 2.9 g/dL (3.4-5.0); ALBUMIN/GLOBULIN RATIO 0.8 (1.0-1.7); TOTAL BILIRUBIN 0.1 mg/dL (0.2-1.0); TOTAL PROTEIN 6.4 g/dL (6.4-8.2)
== END ==
LOC: ONCLAB 10:38
PROVIDERS: ATTEND Internal Medicine Hematology & Oncology
DX: C34.82 Malignant neoplasm of overlapping sites of left bronchus and lung (principal); D50.9 Iron deficiency anemia, unspecified
CPT/HCPCS: 36415; 80053; 82728; 83540; 83550; 85025

== ENCOUNTER → 2021-06-14 | Outpatient (CLI) | payer MEDICARE ==
[2021-05-17 15:00] VITALS: BP 126/97
[2021-06-14 11:26] LABS: BASO # 0.1 x10^3/uL (0.0-0.2); BASO % 1 % (0-3); EOS # 0.7 x10^3/uL (0.0-0.7); EOS % 8 % (0-3); HEMATOCRIT 26.3 % (36.0-47.0); HEMOGLOBIN 8.9 g/dL (12.0-15.5); LYMPH # 0.8 x10^3/uL (1.0-4.8); LYMPH % 10 % (24-48); MEAN CORPUSCULAR HEMOGLOBIN 32 pg (25-35); MEAN CORPUSCULAR HGB CONC 34 g/dL (31-37); MEAN CORPUSCULAR VOLUME 96 fL (79-100); MONO # 0.7 x10^3/uL (0.0-1.1); MONO % 8 % (0-9); NEUT # 6.3 x10^3/uL (1.8-7.7); NEUT % 74 % (31-73); PLATELET COUNT 413 x10^3/uL (140-400); RED BLOOD COUNT 2.75 x10^6/uL (3.50-5.40); RED CELL DISTRIBUTION WIDTH 17.6 % (11.5-14.5); WHITE BLOOD COUNT 8.5 x10^3/uL (4.0-11.0)
[2021-06-14 11:39] LABS: CALCIUM 8.7 mg/dL (8.5-10.1); CREATININE 0.7 mg/dL (0.6-1.0); GFR 96.5; POTASSIUM 4.1 mmol/L (3.5-5.1)
[2021-06-14 11:45] LABS: ALBUMIN 3.5 g/dL (3.4-5.0); ALBUMIN/GLOBULIN RATIO 1.1 (1.0-1.7); TOTAL BILIRUBIN 0.2 mg/dL (0.2-1.0); TOTAL PROTEIN 6.6 g/dL (6.4-8.2)
== END ==
LOC: ONCLAB 10:45
PROVIDERS: ATTEND Internal Medicine Hematology & Oncology
DX: C34.82 Malignant neoplasm of overlapping sites of left bronchus and lung (principal)
CPT/HCPCS: 36415; 80053; 85025

== ENCOUNTER → 2021-06-28 | Outpatient (CLI) | payer MEDICARE ==
[2021-05-17 15:00] VITALS: BP 126/97
[~2021-06-28] MED LIST changes: +IOHEXOL 240 MG/ML 50ML VIAL. PO ONE; +IOHEXOL 300 MG/ML 100ML VIAL. IV ONE
--- NOTE | 2021-06-28 13:58 | RAD ---
CT of the chest abdomen and pelvis with contrast 06/28/2021 INDICATION: Lung adenocarcinoma. COMPARISON STUDY: CT angiography of the chest April 27, 2021. TECHNIQUE: Multidetector CT imaging of the chest abdomen and pelvis was performed following the admin istration of IV contrast Findings: 1.6 cm spiculated mass in left upper lobe is grossly unchanged. The previously identified nodule in t he left lower lobe has decreased in size from 7 mm to approximately 4 mm. 3 mm nodule in the left upp er lobe slightly decreased now measuring 2 mm. No new pulmonary nodules or masses are identified. Heart size is normal. Coronary calcification is no irina. No pathologically enlarged mediastinal adenopathy is seen. Areas of left basilar mucous plugging . The present. Appearance is similar to comparison study. Right internal jugular port is noted with t ip at the cavoatrial junction. Calcified mediastinal and right hilar adenopathy is unchanged. The destructive, metastatic lesion involving the left C7 through ninth ribs ribs appears mildly impr rama in the interim. Geographic area of low density along the falciform ligament is seen. The appearance is most suggestiv e of focal fatty infiltration. Small subcapsular hypodensity is seen posteriorly in the inferior most right liver measuring 4 mm. Spleen, adrenal glands, kidneys, and pancreas, are grossly unremarkable. No evidence of bowel obstruction is seen. No acute inflammatory changes involving the bowel are iden tified. Severe diffuse atherosclerotic vascular disease is noted. Dense calcification likely high-gra de stenoses of the bilateral common iliac arteries noted. 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 Dense calcification of the left common femora l artery suggesting significant stenosis is seen. IMPRESSION: 1. Grossly stable 1.6 cm spiculated mass, left upper lobe. 2 other subcentimeter pulmonary nodules id entified on most recent comparison study appear slightly smaller. 2. Continued mild improvement in the destructive lesion involving the C7 through ninth ribs. 3. Geographic area of low density along falciform ligament most likely suggestive of focal fatty infi ltration. Attention on follow-up recommended given history of malignancy. Nonspecific 4 mm hypodensit y, posterior right liver, nonspecific. Attention on follow-up recommended. CT DOSING PQRS STATEMENT: One or more of the following individualized dose reduction techniques were utilized for this examinat ion: 1. Automated exposure control 2. Adjustment of the mA and/or kV according to patient size 3. Use of iterative reconstruction technique Electronically signed by: Noah Murray MD (06/28/2021 1:55 PM) [id number]
== END ==
LOC: CT 11:20
PROVIDERS: ATTEND Internal Medicine Hematology & Oncology
DX: C34.82 Malignant neoplasm of overlapping sites of left bronchus and lung (principal); R91.8 Other nonspecific abnormal finding of lung field; R59.0 Localized enlarged lymph nodes; I70.209 Unspecified atherosclerosis of native arteries of extremities, unspecified extremity; I25.10 Atherosclerotic heart disease of native coronary artery without angina pectoris; R06.02 Shortness of breath
CPT/HCPCS: 71260; 74177; Q9966; Q9967

== ENCOUNTER → 2021-07-05 | Outpatient (CLI) | payer MEDICARE ==
[2021-05-17 15:00] VITALS: BP 126/97
[~2021-07-05] MED LIST changes: -IOHEXOL 240 MG/ML 50ML VIAL. PO ONE; -IOHEXOL 300 MG/ML 100ML VIAL. IV ONE
[2021-07-05 09:53] LABS: BASO % 1 % (0-3); EOS # 0.3 x10^3/uL (0.0-0.7); EOS % 5 % (0-3); HEMATOCRIT 22.6 % (36.0-47.0); HEMOGLOBIN 7.5 g/dL (12.0-15.5); LYMPH # 0.5 x10^3/uL (1.0-4.8); LYMPH % 7 % (24-48); MEAN CORPUSCULAR HEMOGLOBIN 30 pg (25-35); MEAN CORPUSCULAR HGB CONC 33 g/dL (31-37); MEAN CORPUSCULAR VOLUME 92 fL (79-100); MONO # 0.5 x10^3/uL (0.0-1.1); MONO % 7 % (0-9); NEUT # 5.2 x10^3/uL (1.8-7.7); NEUT % 81 % (31-73); PLATELET COUNT 714 x10^3/uL (140-400); RED BLOOD COUNT 2.46 x10^6/uL (3.50-5.40); RED CELL DISTRIBUTION WIDTH 17.8 % (11.5-14.5); WHITE BLOOD COUNT 6.5 x10^3/uL (4.0-11.0)
[2021-07-05 10:07] LABS: ALBUMIN 2.6 g/dL (3.4-5.0); ALBUMIN/GLOBULIN RATIO 0.7 (1.0-1.7); CALCIUM 8.5 mg/dL (8.5-10.1); CREATININE 1.4 mg/dL (0.6-1.0); GFR 43.3; POTASSIUM 5.1 mmol/L (3.5-5.1); TOTAL BILIRUBIN 0.2 mg/dL (0.2-1.0); TOTAL PROTEIN 6.6 g/dL (6.4-8.2)
== END ==
LOC: ONCLAB 09:32
PROVIDERS: ATTEND Internal Medicine Hematology & Oncology
DX: C34.82 Malignant neoplasm of overlapping sites of left bronchus and lung (principal)
CPT/HCPCS: 36415; 80053; 85025

== ENCOUNTER → 2021-07-26 | Outpatient (CLI) | payer MEDICARE ==
[2021-05-17 15:00] VITALS: BP 126/97
[2021-07-26 11:01] LABS: CALCIUM 8.5 mg/dL (8.5-10.1); GFR 63.9; POTASSIUM 4.5 mmol/L (3.5-5.1)
[2021-07-26 11:04] LABS: BASO % 1 % (0-3); EOS # 0.3 x10^3/uL (0.0-0.7); EOS % 4 % (0-3); HEMATOCRIT 22.7 % (36.0-47.0); HEMOGLOBIN 7.2 g/dL (12.0-15.5); LYMPH # 0.6 x10^3/uL (1.0-4.8); LYMPH % 8 % (24-48); MEAN CORPUSCULAR HEMOGLOBIN 30 pg (25-35); MEAN CORPUSCULAR HGB CONC 32 g/dL (31-37); MEAN CORPUSCULAR VOLUME 93 fL (79-100); MONO # 0.6 x10^3/uL (0.0-1.1); MONO % 8 % (0-9); NEUT # 6.3 x10^3/uL (1.8-7.7); NEUT % 80 % (31-73); PLATELET COUNT 458 x10^3/uL (140-400); RED BLOOD COUNT 2.44 x10^6/uL (3.50-5.40); RED CELL DISTRIBUTION WIDTH 20.9 % (11.5-14.5); WHITE BLOOD COUNT 7.9 x10^3/uL (4.0-11.0)
[2021-07-26 11:08] LABS: ALBUMIN 2.9 g/dL (3.4-5.0); ALBUMIN/GLOBULIN RATIO 0.9 (1.0-1.7); TOTAL BILIRUBIN 0.1 mg/dL (0.2-1.0); TOTAL PROTEIN 6.3 g/dL (6.4-8.2)
[2021-07-26 13:17] LABS: ANISOCYTOSIS MOD; PLT ESTIMATE INCREASED (ADEQUATE)
== END ==
LOC: ONCLAB 10:38
PROVIDERS: ATTEND Internal Medicine Hematology & Oncology
DX: C34.82 Malignant neoplasm of overlapping sites of left bronchus and lung (principal)
CPT/HCPCS: 36415; 80053; 85025

== ENCOUNTER → 2021-08-16 | Outpatient (CLI) | payer MEDICARE ==
[2021-05-17 15:00] VITALS: BP 126/97
[2021-08-16 10:36] LABS: BASO % 1 % (0-3); EOS # 0.1 x10^3/uL (0.0-0.7); EOS % 2 % (0-3); HEMOGLOBIN 7.2 g/dL (12.0-15.5); LYMPH % 13 % (24-48); MEAN CORPUSCULAR HEMOGLOBIN 29 pg (25-35); MEAN CORPUSCULAR HGB CONC 33 g/dL (31-37); MEAN CORPUSCULAR VOLUME 88 fL (79-100); MONO # 0.7 x10^3/uL (0.0-1.1); MONO % 10 % (0-9); NEUT # 5.2 x10^3/uL (1.8-7.7); NEUT % 73 % (31-73); PLATELET COUNT 590 x10^3/uL (140-400); RED CELL DISTRIBUTION WIDTH 19.1 % (11.5-14.5); WHITE BLOOD COUNT 7.1 x10^3/uL (4.0-11.0)
[2021-08-16 10:46] LABS: CALCIUM 8.5 mg/dL (8.5-10.1); GFR 63.9; POTASSIUM 5.2 mmol/L (3.5-5.1)
[2021-08-16 10:53] LABS: ALBUMIN 2.9 g/dL (3.4-5.0); ALBUMIN/GLOBULIN RATIO 0.8 (1.0-1.7); TOTAL BILIRUBIN 0.2 mg/dL (0.2-1.0); TOTAL PROTEIN 6.4 g/dL (6.4-8.2)
== END ==
LOC: ONCLAB 09:53
PROVIDERS: ATTEND Internal Medicine Hematology & Oncology
DX: C34.82 Malignant neoplasm of overlapping sites of left bronchus and lung (principal)
CPT/HCPCS: 36415; 80053; 85025

== ENCOUNTER → 2021-09-06 | Outpatient (CLI) | payer MEDICARE ==
[2021-05-17 15:00] VITALS: BP 126/97
[2021-09-06 10:59] LABS: BASO # 0.1 x10^3/uL (0.0-0.2); BASO % 1 % (0-3); EOS # 0.2 x10^3/uL (0.0-0.7); EOS % 3 % (0-3); HEMOGLOBIN 7.3 g/dL (12.0-15.5); LYMPH # 1.2 x10^3/uL (1.0-4.8); LYMPH % 18 % (24-48); MEAN CORPUSCULAR HEMOGLOBIN 29 pg (25-35); MEAN CORPUSCULAR HGB CONC 33 g/dL (31-37); MEAN CORPUSCULAR VOLUME 88 fL (79-100); MONO # 0.6 x10^3/uL (0.0-1.1); MONO % 8 % (0-9); NEUT % 70 % (31-73); PLATELET COUNT 537 x10^3/uL (140-400); RED BLOOD COUNT 2.49 x10^6/uL (3.50-5.40); RED CELL DISTRIBUTION WIDTH 19.7 % (11.5-14.5); WHITE BLOOD COUNT 7.1 x10^3/uL (4.0-11.0)
[2021-09-06 13:15] LABS: ALBUMIN 3.3 g/dL (3.4-5.0); ALBUMIN/GLOBULIN RATIO 0.9 (1.0-1.7); CREATININE 0.8 mg/dL (0.6-1.0); GFR 82.7; POTASSIUM 4.8 mmol/L (3.5-5.1); TOTAL BILIRUBIN 0.1 mg/dL (0.2-1.0); TOTAL PROTEIN 7.1 g/dL (6.4-8.2)
== END ==
LOC: ONCLAB 10:47
PROVIDERS: ATTEND Internal Medicine Hematology & Oncology
DX: C34.82 Malignant neoplasm of overlapping sites of left bronchus and lung (principal); D50.9 Iron deficiency anemia, unspecified
CPT/HCPCS: 36415; 80053; 82728; 83540; 83550; 85025